=== PATIENT | male | born 1940 | race Caucasian/White ===

== ENCOUNTER 2024-06-28 12:48 | Inpatient (IN) ==
--- NOTE | 2024-06-28 13:03 | Emergency Department Note ---
Impression & Plan AMS (altered mental status), Generalized weakness, UTI (urinary tract infection) ED Provider Note NAME: Makeda OLMOS AGE: 84 SEX: M : 1940 ARRIVES VIA: Ambulance INFORMANT: Patient ED PROVIDER(S): Jay Vieira DO CHIEF COMPLAINT: AMS and weakness HPI: Patient is an 84-year-old male who presents to the ER for worsening mentation and weakness referred in from home. Additional history was obtained from EMS who notes that the patient the patient does have dementia but is significantly more confused from baseline and is having increasing weakness. Patient denies any headache or chest pain. No shortness of breath or belly pain. No urinary symptoms. No dysuria, urgency, or frequency. No other exacerbating or remitting factors. ADDITIONAL HISTORY OBTAINED: Per HPI Chronic Medical/Social Conditions Affecting Care: Per HPI PAST MEDICAL HISTORY:See Below PAST SURGICAL HISTORY:See Below FAMILY HISTORY:See Below SOCIAL HISTORY:See Below HOME MEDICATIONS:See Below ALLERGIES:See Below VITALS:See Below PHYSICAL EXAMINATION: GENERAL: Sitting up in bed, alert, well appearing, well nourished, no distress, non-toxic EYE EXAM: normal conjunctiva. PERRL and EOM's grossly intact. OROPHARYNX: no exudate, no erythema, lips, buccal mucosa, and tongue normal and mucous membranes are moist NECK: supple, no nuchal rigidity, no adenopathy, non-tender LUNGS: Clear to auscultation. Normal chest wall mechanics HEART: no murmurs, S1 normal and S2 normal ABDOMEN: abdomen soft, non-tender, normo-active bowel sounds, no masses, no rebound or guarding. UPPER EXTREMITIES: upper extremities are grossly normal. LOWER EXTREMITIES: No pitting edema. NEURO EXAM: Oriented to person but not place time or year, cranial nerves II-XII intact, normal speech, no weakness of arms, no weakness of legs. No drift. Finger to nose intact. Gross sensation intact. MEDICAL DECISION MAKING: Patient is an 84-year-old male who presents to the ER for weakness and increased confusion at home. IV was established and blood work was obtained. Labs show mild leukocytosis 11,000. No significant anemia. INR unremarkable. BMP with a glucose of 133. LFTs and bilirubin was unremarkable. Troponin was negative. UA consistent with a UTI. Patient was given IV Rocephin and updated at bedside. Discussed with the who notes that the confusion and weakness has been present for 24 hours. She provided additional history. Discussed the case with the hospitalist for further evaluation management treatment. Consults/Care Managements Discussions: Per MDM Triage Nursing notes reviewed. Limited review of prior medical records performed Vital Signs: reviewed and remarkable for no significant abnormalities Differential diagnosis: Differential diagnoses includes but is not limited to toxic, metabolic, infectious, traumatic, cardiac, neurologic, hematologic, psychiatric and inflammatory etiologies. ER treatment provided: See below Diagnostics interpreted by me include EKG and cardiac monitoring as listed below: -Cardiac Monitoring: An order was placed for continuous cardiac monitoring. The monitor shows a rate of 72 with sinus rhythm. -ECG: Sinus rhythm rate of 70 Normal axis No PVCs QTc 429 -Laboratory studies:Interpreted by me as stated above in MDM and shown below. 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 CKD (chronic kidney disease) stage 3, GFR 30-59 ml/min GERD (gastroesophageal reflux disease) HLD (hyperlipidemia) HTN (hypertension) T2DM (type 2 diabetes mellitus) Surgical History (Updated 06/28/24 @ 15:08 by Sue Ocasio PA-C) Hx of colonoscopy Hx of prostate biopsy History of tonsillectomy and adenoidectomy Family History (Updated 06/28/24 @ 16:22 by Sue Ocasio PA-C) Mother Cancer Sister Parkinson disease Social History Smoking Status: Former smoker Tobacco Type: Cigarettes Hx Alcohol Use: No Hx Substance Use: No Preferred Language: [place] Beliefs That Will Affect Care: None Current Living Situation: Spouse Feels Safe at Home: Yes Safety Concerns: Feels Safe At This Time Assistive Devices: Walker Allergies Allergies Allergy/AdvReac Type Severity Reaction Status Date / Time Penicillins Allergy Intermediate Unknown Unverified 02/21/24 09:49 N Allergy Unknown Unknown Uncoded 02/21/24 09:49 PCN Allergy Unknown Unknown Uncoded 02/21/24 09:49 Home Meds Home Medications Medication Instructions Recorded Confirmed aspirin 81 mg tablet,delayed 81 mg PO DAILY 06/28/24 06/28/24 release empagliflozin 25 mg tablet 25 mg PO DAILY 06/28/24 06/28/24 lisinopril 10 mg tablet 10 mg PO DAILY 06/28/24 06/28/24 memantine 10 mg tablet 10 mg PO BID 06/28/24 06/28/24 pravastatin 40 mg tablet 40 mg PO HS 06/28/24 06/28/24 Results & Data (ED) Vital Signs Vital Signs - 24 hr 06/28/24 12:59 06/28/24 13:12 06/28/24 13:13 Temperature 37.7 C H Temperature Source Oral Pulse Rate 70 71 Pulse Rate [Finger] Pulse Rhythm Regular Pulse Rhythm [Finger] Pulse Strength Normal Pulse Strength [Finger] Respiratory Rate 16 Respiratory Effort / Characteristics Non-Labored Spontaneous Respiratory Depth Normal Respiratory Pattern Regular Blood Pressure 105/58 L Blood Pressure [Right Arm] Blood Pressure Mean 73 Blood Pressure Mean [Right Arm] Blood Pressure Position Sitting Blood Pressure Position [Right Arm] Pulse Oximetry 94 94 Oxygen Delivery Method Room Air Room Air Sepsis Recent Fever Within 48 Hours Yes Sepsis New/Unexplained Change in Mental Status N/A Sepsis Action Taken by Nursing No Action Required 06/28/24 14:00 06/28/24 14:00 Temperature Temperature Source Pulse Rate Pulse Rate [Finger] 69 Pulse Rhythm Pulse Rhythm [Finger] Regular Pulse Strength Pulse Strength [Finger] Normal Respiratory Rate 18 Respiratory Effort / Characteristics Non-Labored Respiratory Depth Normal Respiratory Pattern Regular Blood Pressure Blood Pressure [Right Arm] 104/54 L Blood Pressure Mean Blood Pressure Mean [Right Arm] 70 Blood Pressure Position Blood Pressure Position [Right Arm] Lying Pulse Oximetry 93 93 Oxygen Delivery Method Room Air Room Air Sepsis Recent Fever Within 48 Hours Sepsis New/Unexplained Change in Mental Status Sepsis Action Taken by Nursing Laboratory Data 06/28/24 13:05 06/28/24 13:05 Lab Results 06/28/24 06/28/24 06/28/24 Range/Units 13:05 13:58 14:08 WBC 11.02 H (4.8-10.8) K/ul RBC 4.18 L (4.70-6.10) M/uL Hgb 14.2 (14.0-18.0) g/dl Hct 41.9 L (42.0-52.0) % MCV 100.2 H (80.0-100.0) fL MCH 34.0 (25.0-34.0) pg MCHC 33.9 (32.0-36.0) g/dL RDW Std Deviation 46.9 H (36.4-46.3) fL RDW Coeff of Sarai 12.7 (11.5-14.5) % Plt Count 173 (130-400) K/uL MPV 9.4 (9.4-12.4) fL Immature Gran % (Auto) 0.4 % Neut % (Auto) 87.2 % Lymph % (Auto) 5.2 % Evangeline % (Auto) 7.0 % Eos % (Auto) 0.0 % Baso % (Auto) 0.2 % Neut # (Auto) 9.62 H (1.40-6.50) K/uL Lymph # (Auto) 0.57 L (1.20-3.40) K/uL Evangeline # (Auto) 0.77 H (0.11-0.59) K/uL Eos # (Auto) 0.00 (0.00-0.50) K/uL Baso # (Auto) 0.02 (0.00-0.20) K/uL Immature Gran # (Auto) 0.04 (0.01-0.20) K/uL PT 11.3 (9.0-12.0) Seconds INR 1.0 (0.9-1.1) APTT 26 (21-31) Seconds PTT Ratio 1.0 Sodium 141 (136-145) mmol/L Potassium 4.4 (3.5-5.1) mmol/L Chloride 106 (98-107) mmol/L Carbon Dioxide 27 (21-32) mmol/L Anion Gap 8 (3-11) BUN 21 (6-23) mg/dl Creatinine 1.11 (0.6-1.4) mg/dl Est Cr Clr Drug Dosing Not Reportable eGFR 65.48 BUN/Creatinine Ratio 18.9 (10-20) Glucose 128 H (70-99(Fasting)) mg/dl Lactate 1.3 (0.4-2.0) mmol/L Calcium 9.4 (8.6-10.3) mg/dl Total Bilirubin 1.1 H (0.2-1.0) mg/dl AST 15 (13-39) U/L ALT 8 (7-52) U/L Alkaline Phosphatase 63 (34-104) U/L Troponin I High Sens 12.8 (0-20) pg/ml Total Protein 7.1 (6.0-8.3) gm/dl Albumin 4.3 (3.4-5.0) gm/dl Globulin 2.8 (2.5-4.0) gm/dl Albumin/Globulin Ratio 1.5 (0.9-2) Lipase 14 (11-82) U/L Procalcitonin 0.12 (0-0.5) ng/ml Urine Color Yellow Urine Appearance Clear (Clear) Urine pH 5.5 (4.5-7.5) Ur Specific [place] 1.041 H (1.000-1.030) Urine Protein Trace H (Negative) Urine Glucose (UA) 3+ H (Negative) Urine Ketones 1+ H (Negative) Urine Blood Negative (Negative) Urine Nitrite Positive A (Negative) Urine Bilirubin Negative (Negative) Urine Urobilinogen Negative (Negative) Ur Leukocyte Esterase Negative (Negative) Urine WBC (Auto) 6-10 H (0-5) /hpf Urine RBC (Auto) 0-2 (0-2) /hpf U Hyaline Cast (Auto) 0-2 (0-2) /lpf U Epithel Cells (Auto) 0-2 (0-2) /hpf Urine Bacteria (Auto) 4+ H (None Seen) Urine Opiates Screen Neg (Neg) Ur Methadone, Qual Neg (Neg) Urine Fentanyl Screen Neg (Neg) Urine Barbiturates Neg (Neg) Ur Phencyclidine (PCP) Neg (Neg) U Amphetamin/Meth Scrn Neg (Neg) MDMA (Ecstasy) Screen Neg (Neg) U Benzodiazepines Scrn Neg (Neg) Ur Cocaine Metabolite Neg (Neg) U Marijuana (THC) Screen Neg (Neg) Adenovirus (PCR) Not Detected (NotDetected) B. pertussis DNA (PCR) Not Detected (NotDetected) B.parapertussis DNA PCR Not Detected (NotDetected) C. pneumoniae DNA (PCR) Not Detected (NotDetected) Coronavirus OC43 (PCR) Not Detected (NotDetected) Coronavirus HKU1 (PCR) Not Detected (NotDetected) Coronavirus 229E (PCR) Not Detected (NotDetected) SARS-CoV-2 (PCR) Not Detected (NotDetected) Coronavirus NL63 (PCR) Not Detected (NotDetected) Human Metapneumovir PCR Not Detected (NotDetected) Influenza Type A (PCR) Not Detected (NotDetected) Influenza Type B (PCR) Not Detected (NotDetected) M. pneumoniae (PCR) Not Detected (NotDetected) Parainfluenza 1 (PCR) Not Detected (NotDetected) Parainfluenza 2 (PCR) Not Detected (NotDetected) Parainfluenza 3 (PCR) Not Detected (NotDetected) Parainfluenza 4 (PCR) Not Detected (NotDetected) RSV (PCR) Not Detected (NotDetected) Entero/Rhino (PCR) Not Detected (NotDetected) Administered Medications Discontinued Medications Ceftriaxone Sodium (Rocephin) 2,000 mg in 50 mls @ 100 mls/hr IV NOW STA Stop: 06/28/24 15:06 Last Infusion: 06/28/24 15:56 Dose: Infused Documented By: Admin: 06/28/24 14:53 Dose: 100 mls/hr Documented By: DAVIDA Insulin Aspart (Insulin Aspart Per Unit Charge) 0 units SC ACHS YANY Stop: 07/28/24 17:18 Last Admin: 06/28/24 17:58 Dose: Not Given Documented By: SEBASTIEN Imaging Data Radiologist's Impression: Chest X-Ray 06/28/24 13:01 XR chest 1V portable HISTORY: 84 years-old Male Chest pain, nonspecific COMPARISON: None TECHNIQUE: AP view the chest FINDINGS: Cardiac silhouette is mildly enlarged. Atherosclerosis of the aorta. No pneumothorax, large pleural effusion or overt pulmonary edema. Probable mild subsegmental bibasilar atelectasis with possible trace pleural effusions. Severe right glenohumeral osteoarthritis. IMPRESSION: No acute process. ACT 112: Negative or not required by law. The above report was generated using voice recognition software. It may contain grammatical, syntax or spelling errors. Electronically signed by: Shahid Vicente M.D. 06/28/2024 1:[address] 06/28/24 13:01 CT OF THE HEAD WITHOUT CONTRAST CLINICAL HISTORY: Altered mental status COMPARISON STUDY: No previous studies for comparison. CT DOSE: 625.8 mGy.cm TECHNIQUE: Helical axial images of the head were obtained without IV contrast. Automated exposure control was utilized for the study. A dose lowering technique was utilized adhering to the principles of ALARA. FINDINGS: No acute intracranial hemorrhage, midline shift or mass effect is present. Dilatation of the lateral and third ventricles is due to atrophy. White matter hypodensity suggests small vessel disease. The basal cisterns are patent. No extra-axial collections are present. There are no findings to suggest acute dural sinus thrombosis or acute territorial infarct. No significant calvarial abnormalities are present. Visualized portions of the sinuses and mastoid air cells are clear. IMPRESSION: No acute intracranial findings. ACT 112: Negative or not required by law. Electronically signed by: Nathaniel Grajeda M.D. 06/28/2024 2:01 PM Discharge Plan Visit Data Chief Complaint: Weakness Stated Complaint: AMS, WEAKNESS ED Provider: Jay Vieira Discharge Problem: AMS (altered mental status), Generalized weakness, UTI (urinary tract infection) Patient Disposition: Admitted As Inpatient Discharge Instructions Interventions: ED Discharge Assessment Last Done: 06/28/24 16:43 Discharge Problem: AMS (altered mental status) Qualifiers: Altered mental status type: unspecified Qualified Code(s): R41.82 - Altered mental status, unspecified UTI (urinary tract infection) Qualifiers: Urinary tract infection type: acute cystitis Hematuria presence: without hematuria Qualified Code(s): N30.00 - Acute cystitis without hematuria
--- NOTE | 2024-06-28 13:15 | XRay Report ---
XR chest 1V portable HISTORY: 84 years-old Male Chest pain, nonspecific COMPARISON: None TECHNIQUE: AP view the chest FINDINGS: Cardiac silhouette is mildly enlarged. Atherosclerosis of the aorta. No pneumothorax, large pleural e ffusion or overt pulmonary edema. Probable mild subsegmental bibasilar atelectasis with possible trac e pleural effusions. Severe right glenohumeral osteoarthritis. IMPRESSION: No acute process. ACT 112: Negative or not required by law. The above report was generated using voice recognition software. It may contain grammatical, syntax o r spelling errors. Electronically signed by: Shahid Vicente M.D. 06/28/2024 1:13 PM
[2024-06-28 13:32] LABS: Basophils # (auto) 0.02 K/uL (0.00-0.20); Basophils % (auto) 0.2 %; Hematocrit (blood only) 41.9 % (42.0-52.0); Hemoglobin 14.2 g/dl (14.0-18.0); Immature Granulocytes # (auto) 0.04 K/uL (0.01-0.20); Immature Granulocytes % (auto) 0.4 %; Lymphocytes # (auto) 0.57 K/uL (1.20-3.40); Lymphocytes % (auto) 5.2 %; Mean Corpuscular Hgb Conc 33.9 g/dL (32.0-36.0); Mean Corpuscular Volume 100.2 fL (80.0-100.0); Mean Platelet Volume 9.4 fL (9.4-12.4); Monocytes # (auto) 0.77 K/uL (0.11-0.59); Neutrophils # (auto) 9.62 K/uL (1.40-6.50); Neutrophils % (auto) 87.2 %; Platelet Count 173 K/uL (130-400); RDW Coefficient of Variation 12.7 % (11.5-14.5); RDW Standard Deviation 46.9 fL (36.4-46.3); Red Blood Count 4.18 M/uL (4.70-6.10); White Blood Count 11.02 K/ul (4.8-10.8)
[2024-06-28 13:48] LABS: Alanine Aminotransferase 8 U/L (7-52); Albumin Globulin Ratio 1.5 (0.9-2); Albumin Level 4.3 gm/dl (3.4-5.0); Alkaline Phosphatase 63 U/L (34-104); Anion Gap 8 (3-11); Aspartate Aminotransferase 15 U/L (13-39); BUN Creatinine Ratio 18.9 (10-20); Bilirubin,Total 1.1 mg/dl (0.2-1.0); Blood Urea Nitrogen 21 mg/dl (6-23); Calcium 9.4 mg/dl (8.6-10.3); Carbon Dioxide 27 mmol/L (21-32); Chloride 106 mmol/L (98-107); Globulin 2.8 gm/dl (2.5-4.0); Glucose 128 mg/dl (70-99(Fasting)); Lipase 14 U/L (11-82); Potassium 4.4 mmol/L (3.5-5.1); Sodium 141 mmol/L (136-145); Total Protein 7.1 gm/dl (6.0-8.3)
[2024-06-28 13:54] LABS: Partial Thromboplastin Time 26 Seconds (21-31); Prothrombin Time 11.3 Seconds (9.0-12.0)
[2024-06-28 13:55] LABS: Troponin I High Sensitivity 12.8 pg/ml (0-20)
--- NOTE | 2024-06-28 14:03 | CT Scan Report ---
CT OF THE HEAD WITHOUT CONTRAST CLINICAL HISTORY: Altered mental status COMPARISON STUDY: No previous studies for comparison. CT DOSE: 625.8 mGy.cm TECHNIQUE: Helical axial images of the head were obtained without IV contrast. Automated exposure con trol was utilized for the study. A dose lowering technique was utilized adhering to the principles o f ALARA. FINDINGS: No acute intracranial hemorrhage, midline shift or mass effect is present. Dilatation of th e lateral and third ventricles is due to atrophy. White matter hypodensity suggests small vessel dise ase. The basal cisterns are patent. No extra-axial collections are present. There are no findings to suggest acute dural sinus thrombosis or acute territorial infarct. No significant calvarial abnormali ties are present. Visualized portions of the sinuses and mastoid air cells are clear. IMPRESSION: No acute intracranial findings. ACT 112: Negative or not required by law. Electronically signed by: Nathaniel Grajeda M.D. 06/28/2024 2:01 PM
[2024-06-28 14:15] LABS: Appearance Urine Clear (Clear); Bacteria Urine Automated 4+ (None Seen); Bilirubin Urine Negative (Negative); Blood Urine Negative (Negative); Cast Urine Automated 0-2 /lpf (0-2); Color Urine Yellow; Epithelial Cell Urine Auto 0-2 /hpf (0-2); Glucose Urine UA 3+ (Negative); Ketones Urine 1+ (Negative); Leukocyte Esterase Urine Negative (Negative); Nitrite Urine Positive (Negative); Protein Urine Trace (Negative); RBC Urine Automated 0-2 /hpf (0-2); Specific Gravity Urine 1.041 (1.000-1.030); Urobilinogen Urine Negative (Negative); pH Urine 5.5 (4.5-7.5)
[2024-06-28 14:53] LABS: Amphetamines+Metham, Urine Neg (Neg); Barbiturates, Urine Neg (Neg); Benzodiazepine, Urine Neg (Neg); Cocaine, Urine Neg (Neg); Fentanyl, Urine Neg (Neg); MDMA (Ecstacy), Urine Neg (Neg); Marijuana, Urine Neg (Neg); Methadone, Urine Neg (Neg); Opiate, Urine Neg (Neg); Phencyclidine, Urine Neg (Neg)
[2024-06-28] MEDS: cefTRIAXone SODIUM 2,000 MG/50 ML BAG IV STA (14:53)
[2024-06-28 14:58] LABS: Adenovirus PCR Not Detected (NotDetected); Bordetella parapertussis PCR Not Detected (NotDetected); Bordetella pertussis PCR Not Detected (NotDetected); Chlamydia pneumoniae PCR Not Detected (NotDetected); Coronavirus 229E PCR Not Detected (NotDetected); Coronavirus CoV-2 (COVID19)PCR Not Detected (NotDetected); Coronavirus HKU1 PCR Not Detected (NotDetected); Coronavirus NL63 PCR Not Detected (NotDetected); Coronavirus OC43PCR Not Detected (NotDetected); Human Metapneumovirus PCR Not Detected (NotDetected); Influenza A PCR Not Detected (NotDetected); Influenza B PCR Not Detected (NotDetected); Mycoplasma pneumoniae PCR Not Detected (NotDetected); Parainfluenza Virus 1 PCR Not Detected (NotDetected); Parainfluenza Virus 2 PCR Not Detected (NotDetected); Parainfluenza Virus 3 PCR Not Detected (NotDetected); Parainfluenza Virus 4 PCR Not Detected (NotDetected); Respiratory Syncytial VirusPCR Not Detected (NotDetected); Rhinovirus/Enterovirus PCR Not Detected (NotDetected)
--- NOTE | 2024-06-28 15:09 | History & Physical Report ---
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 feels cognition is at baseline and therefore no encephalopathy component to his UTI continue namenda T2DM: hold jardiance, last a1c was 6.2 in november, A1C in a.m., accuchecks AC/HS, if BSG consistently elevated add sliding scale HTN: chronic, stable, bp on lower side, hold lisinopril for now, resume when appropriate HLD: chronic, stable continue statin CKD-3 - baseline cr 1.1, avoid nephrotoxic agents, appears on dry side, give 1 L of gentle IVF DVT ppx: SQ heparin DNR/DNI PCP: Susanne Dispo: admit to med tele, PT/OT consulted, possible to need rehab vs d/c to home with home health Pt was seen and examined in collaboration with Dr. Caldwell, please see addendum I spent a total of 76minutes reviewing notes, outpatient records, labs, medication, coordinating, documenting and providing care for this patient excluding time spent in the performance of separately billed services. History of Present Illness Chief Complaint: Increasing generalized weakness Primary Care Provider: Michael Skinner, This is an 84-year-old male who has significant past medical history of HTN, HLD, T2DM, CKD stage III, GERD, BPH, late onset Alzheimer dementia without behavior disturbance who presents to ED secondary to worsening confusion. History obtained from ED provider and outpatient chart review given patient's underlying cognitive status. Patient's is at bedside who also helps elicit history. Her live at home. He does not require assist device for ambulation but she states he typically takes very slow and short steps. She is his main caregiver. He does have underlying dementia. At baseline he tends to be confused and sometimes is unaware of who she is. She does not feel his confusion is any worse than his baseline. She feels he has been getting increasingly weak over the past few days. Typically he is able to get in bed himself but today he had had difficulty doing so. She denies any known fever, chest pain, shortness of breath, vomiting or diarrhea. She states he had been constipated and was previously seen in ED a few weeks prior because of this. He is mostly incontinent of urine and wears depends. In ED patient remained hemodynamically stable. He did have a mild elevated temp at 37.7. He did not meet sepsis criteria. A CBC and CMP was generally unremarkable, but he did have a urinalysis that was consistent with infection. He did receive empiric IV Rocephin in the ED. Allergies Allergy/AdvReac Type Severity Reaction Status Date / Time Penicillins Allergy Intermediate Unknown Unverified 02/21/24 09:49 N Allergy Unknown Unknown Uncoded 02/21/24 09:49 PCN Allergy Unknown Unknown Uncoded 02/21/24 09:49 Home Medications Medication Instructions Recorded Confirmed Type aspirin 81 mg tablet,delayed 81 mg PO DAILY 06/28/24 06/28/24 History release empagliflozin 25 mg tablet 25 mg PO DAILY 06/28/24 06/28/24 History lisinopril 10 mg tablet 10 mg PO DAILY 06/28/24 06/28/24 History memantine 10 mg tablet 10 mg PO BID 06/28/24 06/28/24 History pravastatin 40 mg tablet 40 mg PO HS 06/28/24 06/28/24 History Past Med/Surg History Problem List (Updated 06/28/24 @ 16:24 by Sue Ocasio PA-C) UTI (urinary tract infection) Generalized weakness Medical History (Updated 06/28/24 @ 16:24 by Sue Ocasio PA-C) BPH (benign prostatic hyperplasia) 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 CKD (chronic kidney disease) stage 3, GFR 30-59 ml/min GERD (gastroesophageal reflux disease) HLD (hyperlipidemia) HTN (hypertension) T2DM (type 2 diabetes mellitus) Surgical History (Updated 06/28/24 @ 15:08 by LENCHO SchaefferC) Hx of colonoscopy Hx of prostate biopsy History of tonsillectomy and adenoidectomy Family History (Updated 06/28/24 @ 16:22 by Sue Ocasio PA-C) Mother Cancer Sister Parkinson disease Social History Smoking Status: Former smoker Hx Alcohol Use: Yes Hx Substance Use: No Preferred Language: Greenlandic Feels Safe at Home: Yes Review of Systems Review of Systems: All systems reviewed & are unremarkable except as noted in HPI & below Physical Exam Physical Exam: Gen: Thin, elderly, M, NAD, A&O to self HEENT: Normocephalic, atraumatic, conjunctivae moist, sclerae anicteric, mucous membranes moist dry with poor dentition Lung: Clear to Auscultation bilaterally, diminished at bases due to poor insp effort, no wheezes/rales/rhonchi Heart: Regular rate, regular rhythm,2/6 EMILIANO LUSB, no rubs, or gallops Abdomen: Soft, NT, ND +BS x 4 Extremities: No edema Skin: Warm, no rash, negative turgor. Results & Data Results & Data Vital Signs (Past 12 Hours) Vital Signs Temp Pulse Pulse Resp BP BP Pulse Ox 06/28/24 14:00 69 18 104/54 L 93 06/28/24 14:00 93 06/28/24 13:13 71 06/28/24 13:12 94 06/28/24 12:59 37.7 C H 70 16 105/58 L 94 O2 Del Method 06/28/24 14:00 Room Air 06/28/24 14:00 Room Air, Nasal Cannula, Oxymask, Aerosol Mask, Ambu-Bag, BiPAP, CPAP, Free Flow/Blow-by, High Flow Nasal Cannula, Oxyhood, Mechanical Vent, Nasal CPAP, Nebulizer, Non-rebreather, T-Piece, Trach Collar, Face Tent, Other 06/28/24 13:13 06/28/24 13:12 Room Air 06/28/24 12:59 Room Air Laboratory Results I have independently reviewed and interpreted patient's admitting labs including CBC, CMP, lipase, procal, UA, lactic acid Diagnostic Findings Chest X-Ray 06/28/24 13:01 XR chest 1V portable HISTORY: 84 years-old Male Chest pain, nonspecific COMPARISON: None TECHNIQUE: AP view the chest FINDINGS: Cardiac silhouette is mildly enlarged. Atherosclerosis of the aorta. No pneumothorax, large pleural effusion or overt pulmonary edema. Probable mild subsegmental bibasilar atelectasis with possible trace pleural effusions. Severe right glenohumeral osteoarthritis. IMPRESSION: No acute process. ACT 112: Negative or not required by law. The above report was generated using voice recognition software. It may contain grammatical, syntax or spelling errors. Electronically signed by: Shahid Vicente M.D. 06/28/2024 1:[address] 06/28/24 13:01 CT OF THE HEAD WITHOUT CONTRAST CLINICAL HISTORY: Altered mental status COMPARISON STUDY: No previous studies for comparison. CT DOSE: 625.8 mGy.cm TECHNIQUE: Helical axial images of the head were obtained without IV contrast. Automated exposure control was utilized for the study. A dose lowering technique was utilized adhering to the principles of ALARA. FINDINGS: No acute intracranial hemorrhage, midline shift or mass effect is present. Dilatation of the lateral and third ventricles is due to atrophy. White matter hypodensity suggests small vessel disease. The basal cisterns are patent. No extra-axial collections are present. There are no findings to suggest acute dural sinus thrombosis or acute territorial infarct. No significant calvarial abnormalities are present. Visualized portions of the sinuses and mastoid air cells are clear. IMPRESSION: No acute intracranial findings. ACT 112: Negative or not required by law. Electronically signed by: Nathaniel Grajeda M.D. 06/28/2024 2:01 PM Medications Administered Medication List Discontinued Medications Ceftriaxone Sodium (Rocephin) 2,000 mg in 50 mls @ 100 mls/hr IV NOW STA Stop: 06/28/24 15:06 Last Infusion: 06/28/24 15:56 Dose: Infused Documented By: Admin: 06/28/24 14:53 Dose: 100 mls/hr Documented By: DAVIDA ECG Additional Comments: I have independently reviewed and interpreted patient's admitting EKG which revealed: NSR, no st or t wave change, 70 bpm, qtc 429ms COVID-19 Results Results COVID-19 Adm Lab Results: RBC 4.18 M/uL (4.70-6.10) L 06/28/24 WBC 11.02 K/ul (4.8-10.8) H 06/28/24 Hgb 14.2 g/dl (14.0-18.0) 06/28/24 Hct 41.9 % (42.0-52.0) L 06/28/24 Plt Count 173 K/uL (130-400) 06/28/24 Neutrophils (%) (Auto) 87.2 % 06/28/24 Lymphocytes (%) (Auto) 5.2 % 06/28/24 Eosinophils # (Auto) 0.00 K/uL (0.00-0.50) 06/28/24 Immature Granulocyte % (Auto) 0.4 % 06/28/24 Neutrophils # (Auto) 9.62 K/uL (1.40-6.50) H 06/28/24 Lymphocytes # (Auto) 0.57 K/uL (1.20-3.40) L 06/28/24 Eosinophils # (Auto) 0.00 K/uL (0.00-0.50) 06/28/24 Basophils # (Auto) 0.02 K/uL (0.00-0.20) 06/28/24 Immature Granulocyte # (Auto) 0.04 K/uL (0.01-0.20) 4 Na 141 mmol/L (136-145) 06/28/24 K 4.4 mmol/L (3.5-5.1) 06/28/24 Cl 106 mmol/L (98-107) 06/28/24 CO2 27 mmol/L (21-32) 06/28/24 Anion Gap 8 (3-11) 06/28/24 BUN 21 mg/dl (6-23) 06/28/24 Creatinine 1.11 mg/dl (0.6-1.4) 06/28/24 BUN/Creatinine Ratio 18.9 (10-20) 06/28/24 Glucose Level 128 mg/dl (70-99(Fasting)) H 06/28/24 Ca 9.4 mg/dl (8.6-10.3) 06/28/24 Total Bilirubin 1.1 mg/dl (0.2-1.0) H 06/28/24 AST/SGOT 15 U/L (13-39) 06/28/24 ALT/SGPT 8 U/L (7-52) 06/28/24 Alkaline Phosphatase 63 U/L (34-104) 06/28/24 Total Protein 7.1 gm/dl (6.0-8.3) 06/28/24 Albumin 4.3 gm/dl (3.4-5.0) 06/28/24 Globulin 2.8 gm/dl (2.5-4.0) 06/28/24 Albumin/Globulin Ratio 1.5 (0.9-2) 06/28/24 Procalcitonin 0.12 ng/ml (0-0.5) 06/28/24 PTT 26 Seconds (21-31) 06/28/24 INR 1.0 (0.9-1.1) 06/28/24 Adenovirus (PCR) Not Detected (NotDetected) 06/28/24 B. parapertussis DNA (PCR) Not Detected (NotDetected) 06/11 04/03 B. pertussis DNA (PCR) Not Detected (NotDetected) 06/28/24 C. pneumoniae DNA (PCR) Not Detected (NotDetected) 4 Coronavirus Type OC43 (PCR) Not Detected (NotDetected) Coronavirus Type HKU1 (PCR) Not Detected (NotDetected) Coronavirus Type 229E (PCR) Not Detected (NotDetected) COVID-19 PCR Not Detected (NotDetected) 06/28/24 Coronavirus Type NL63 (PCR) Not Detected (NotDetected) Human Metapneumovirus (PCR) Not Detected (NotDetected) Influenza Virus Type A (PCR) Not Detected (NotDetected) Influenza Virus Type B (PCR) Not Detected (NotDetected) M. pneumoniae (PCR) Not Detected (NotDetected) 06/28/24 Parainfluenza Type 1 (PCR) Not Detected (NotDetected) 06/11 04/03 Parainfluenza Type 2 (PCR) Not Detected (NotDetected) 06/11 04/03 Parainfluenza Type 3 (PCR) Not Detected (NotDetected) 06/11 04/03 Parainfluenza Type 4 (PCR) Not Detected (NotDetected) 06/11 04/03 RSV (PCR) Not Detected (NotDetected) 06/28/24 Enterovirus/Rhinovirus (PCR) Not Detected (NotDetected) Chest X-Ray 06/28/24 Code Status & VTE Plan Code Status DNR/DNI Supervising Physician Co-Signing Physician Notes Pt seen and examined in the ED. His is present. Chart and data was reviewed. Spouse said his dementia is worsening. She states he is becoming more verbally abusive. Will consult CM. I agree with the PHILLIP plan of care as directed. Total time spent in care was 15 minutes.
[2024-06-28] MEDS ORDERED: DEXTROSE 50% 50 ML SYRINGE IV PRN (17:19)
[2024-06-28] MEDS ORDERED: CARBOHYDRATES FOR HYPOGLYCEMIA PO PRN (17:19)
[2024-06-28] MEDS ORDERED: GLUCAGON FOR INJ 1 MG VIAL SQ PRN (17:19)
[2024-06-28] MEDS ORDERED: GLUCOSE 40% GEL 15 GM TUBE PO PRN (17:19)
[2024-06-28] MEDS ORDERED: ONDANSETRON INJ 2 MG/ML 2 ML VIAL IV PRN (17:19)
[2024-06-28] MEDS ORDERED: GLUCOSE 10 TAB/TUBE PO PRN (17:19)
[2024-06-28] MEDS: INSULIN ASPART PER UNIT CHARGE SC SCH (17:58)
[2024-06-28] MEDS: SODIUM CHLORIDE 0.9% 1,000 ML IV SCH (18:22)
[2024-06-28] MEDS: ACETAMINOPHEN 325 MG TAB PO PRN (18:32)
[2024-06-28] MEDS: PRAVASTATIN SOD 40 MG TAB PO SCH (19:58)
[2024-06-28] MEDS: MEMANTINE HCL 10 MG TAB PO SCH (19:59)
[2024-06-28] MEDS: HEPARIN SOD 5,000 UNIT/0.5 ML VIAL SQ SCH (20:11)
[2024-06-28] MEDS: MELATONIN 3 MG TAB PO PRN (20:11)
--- OUTSIDE RECORDS SUMMARY | 2024-06-28 23:07 | External Medical Summary | Summary of Care ---
Author Name Unknown Organization [facility] Address [address] [place] [address] Phone [phone] Care Team Providers Care Technician Support Engineer Name Role Phone Lila Coughlin DO Primary Care Provider [phone] Reason for Visit * Reason Comments Medication Refill Encounter Details Date Type Department Care Team (Late st Contact Info) Description 05/25/2024 Refill Family Practice [facility] [place] [address] [facility] [place] [address] Lila Coughlin DO [address] [facility] [place] [address] Elbow tendonitis Allergies Active Allergy Reactions Criticality Noted Date Comments Penicillins Rash Low 08/11/1958 Rash, at injection site, no other rash documented as of this encounter (statuses as of 05/28/2024) Medications Medication Sig Dispensed Refills Start Date End Date Status ASPIRIN 81 MG OR TABSIndications:Dy slipidemia, goal LDL below 160 one tab by mouth daily 100 5 04/25/2004 Active Docusate Sodium 100 MG Oral CapsuleIndications :Slow transit constipation 2 Caps twice daily 10 Cap 05/06/2016 Active Empagliflozin 25 MG Oral Tablet (Jardiance) TAKE ONE TABLET BY MOUTH EVERY DAY 90 Tablet 3 09/23/2023 Active Lisinopril 10 MG Oral Tablet (Prinivil)Indicati ons:HTN, goal below 140/90,Type 2 diabetes mellitus with hemoglobin A1c goal of less than 7.0% (HCC) TAKE ONE TABLET BY MOUTH EVERY DAY IN THE MORNING 90 Tablet 3 12/03/2023 5 Active Tamsulosin HCl 0.4 MG Oral Capsule (Flomax) Take 1 Capsule by mouth in the morning. 30 Capsule 3 01/06/2024 Active Stool Softener 50 MG/5ML Oral Liquid (Docusate Sodium) Take 10 mL by mouth in the morning. Active Pravastatin Sodium 40 MG Oral Tablet (Pravachol)Indicat ions:Type 2 diabetes mellitus with hemoglobin A1c goal of less than 7.0% (HCC),Dyslipidemia , goal LDL below 100 TAKE ONE TABLET BY MOUTH IN THE EVENING 90 Tablet 1 02/26/2024 Active Diclofenac Sodium 1 % External Gel (Voltaren)Indicati ons:Elbow tendonitis Apply topically to affected area 2 times a day. Apply to left elbow 200 g 5 05/28/2024 Active Diclofenac Sodium 1 % External Gel (Voltaren)Indicati ons:Elbow tendonitis Apply topically to affected area 2 times a day. Apply to left elbow 100 g 5 04/18/2023 4 Discontinue d(Refill) Memantine HCl 10 MG Oral Tablet (Namenda)Indicatio ns:Late onset Alzheimer's dementia without behavioral disturbance (HCC) TAKE ONE TABLET BY MOUTH TWICE A DAY 180 Tablet 3 06/05/2023 4 Discontinue d(Refill) documented as of this encounter (statuses as of 05/28/2024) Active Problems Problem Noted Date Diagnosed Date Late onset Alzheimer's demen tia without behavioral disturbance 09/10/2022 Chronic kidney disease, stage 3a 01/23/2021 Overview: Per CKD protocol Type 2 diabetes mellitus wit h stage 3a chronic kidney disease and hypertension 12/19/2020 Overview: Per CKD protocol HTN, goal below 150/90 04/29/2017 History of nonmelanoma skin cancer 04/22/2017 Overview: BCC right nasolabial fold 10/16 Obesity, Class I, 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 (see actual BMI) 11/05/2016 Dyslipidemia, goal LDL below 100 03/17/2013 GERD (gastroesophageal reflux disease) 08/07/201 3 Diverticulosis 10/20/2012 Overview: colon diverticulosis, repeat colonoscopy 10 years No advance directive on file 02/02/2008 Overview: Yes, Patient instructed to provide copy of advance directive for provider to review and to be scanned into Electronic Medical Record BPH without obstruction/lower urinary tract symp toms 12/28/2002 documented as of this encounter (statuses as of 05/28/2024) Resolved Problems Problem Noted Date Diagnosed Date Resolved Date Diabetes mellitus with stage 3 chronic kidney disease 10/16/2020 12/21/2020 Overview: Per CKD protocol Type 2 diabetes mellitus wit hout complications 10/04/2020 10/09/2022 Dementia without behavioral disturbance 03/31/2020 10/09/2022 Overview: ICD-10 update of inactive term Prediabetes 05/18/2018 10/19/2020 Overview: Per Prediabetes protocol #1 Essential hypertension with goal blood pressure less than 140/90 05/06/2016 04/29/2017 History of basal cell carcinoma 04/24/2012 04/22/2017 Overview: right nasolabial fold Dyslipidemia, goal LDL below 130 11/07/2010 03/17/2013 BMI 35-39 ISOLATED (SEE ACTUAL BMI) 01/22/2010 11/05/2016 Overview: Per Obesity Protocol, #19 HTN, goal below 140/90 06/16/200905/06 Overview: Modified per HTN Taxonomy. BENIGN HYPERTENSION 01/03/1998 06/16/20 Overview: Modified per HTN Taxonomy. PURE HYPERCHOLESTEROLEM 01/03/199803/2009 Overview: Per Lipid Taxonomy. Type 2 diabetes mellitus wit h hemoglobin A1c goal of less than 7.0% 12/05/2017 Overview: Diabetes Type II, Controlled ICD-10 update of inactive term documented as of this encounter (statuses as of 05/28/2024) Immunizations Name Administration Dates Next Due COVID-19 mRNA, LNP-s, No Pre serve, 2-Dose Series (OzVision) 08/07/2021,11/29/2020,11/08/2020 COVID-19, LNP-s, No Preserve , Evin-sucrose, Ages 12+ (Pfizer) 11/22/2021 Covid-19, Mrna, Lnp-s, Pf, B ivalent, 30 Mcg, IM, 12 yrs and above (Pfizer) 07/11/2022 Hepatitis B, 20+ yrs 05/08/2018,06/16/2017,04/29 Pneumococcal Conjugate Vacc, 13 Valent (Prevnar) 09/21/2014 Pneumococcal Polysaccharide PPV23 (Pneumovax) 05/20/2012 Seasonal Influenza Vac., MDV , IM, 0.5 mL (Fluzone) 07/20/2014,04/28/2013,05/20/2012,05/12,05/09/2010,06/17/2008,06/08/20 07,06/03/2006,06/04/2005 06/06/2012 Seasonal Influenza, PF, 6 M & above, IM , (FluLaval or Fluzone) 05/15/2020,05/08/2018 Seasonal Influenza, Quadriva lent Hd (Fluzone Hd) 04/18/2023,05/03/2022,07/02/2021 Seasonal Influenza, Quadriva lent, No Preserve, IM 04/29/2017,07/01/2016,06/30/2015 07/01/2017 Seasonal Influenza, Trivalen t, Adjuvanted, 65+ YRS, PF, (Fluad) 05/19/2019 TD, Preservative Free 10/20/2008 TDAP (age 10 and older)(Boostrix) 05/03/2022,01/2012 Varicella Zoster Vaccine (Adult) 08/24/2008 Zoster Vaccine Recombinant (Shingrix) 10/09/2022 ,05/03/2022 documented as of this encounter Social History Tobacco Use Types Packs/Day Years Used Date Smoking Tobacco: Former Cigarettes 1 30 0 11/09/1961 - 11/10/1991 Smokeless Tobacco: Never Alcohol Use Standard Drinks/Week Comments Yes 0 (1 standard drink = 0.6 oz pur e alcohol) rare PHQ-2 Answer Date Recorded PHQ Adult Total Score 0 05/03/2022 Sex and Gender Information Value Date Recorded Sex Assigned at Not on file Gender Identity Not on file Sexual Orientation Not on file Job Start Date Occupation Industry Not on file Not on file Not on file documented as of this encounter Miscellaneous Notes * Telephone Encounter - Lila Coughlin DO - 05/28/2024 12:48 PM EDTSigned Prescriptions: Disp Refills Diclofenac Sodium 1 % External Gel (Voltar*200 g 5 Sig: Apply topically to affected area 2 times a day. Apply to left elbow Authorizing Provider: LILA COUGHLIN * Telephone Encounter - Lila Coughlin DO - 05/28/2024 12:48 PM EDTSigned Prescriptions: Disp Refills Diclofenac Sodium 1 % External Gel (Voltar*200 g 5 Sig: Apply topically to affected area 2 times a day. Apply to left elbow Authorizing Provider: LILA COUGHLIN * Telephone Encounter - Marianne Chavez, human geography faculty member - 05/28/2024 8:57 AM EDT Pharmacy checking status, please advise. Marianne Hart Inventory Specialist Manager III [facility] 05/28/2024,8:57 AM * Telephone Encounter - Isabel Morataya CPhT - 05/26/2024 10:08 AM EDT Pharmacy is requesting a 90-day supply, pre-edited RXs as such. Please review and approve if appropriate. Pending Prescriptions: Disp Refills Diclofenac Sodium 1 % External Gel ([place]*200 g 5 Sig: Apply topically to affected area 2 times a day. Apply to left elbow Last Visit: 02/18/2024 (in office), 11/29/2019 (telemedicine) Visit date not found If no future appointments scheduled, and last appointment is greater than a year ago, please schedule patient for an appointment Last date the medication was ordered: 04/18/23 Patient Phone Numbers Labs: Lab Results Component Value Date/Time CREAT 1.1 12/05/2023 11:34 AM CREAT 1.2 10/08/2019 08:27 AM POTASSIUM 4.7 12/05/2023 11:34 AM POTASSIUM 4.8 10/08/2019 08:27 AM TSH 1.95 09/05/2021 01:52 PM TSH 3.35 10/17/2015 07:39 AM LDL 55 12/05/2023 11:34 AM LDL 78 10/08/2019 08:27 AM LDL NOT APPLICABLE 10/08/2019 08:27 AM ALT 10 04/18/2023 11:48 AM ALT 11 10/08/2019 08:27 AM HGBA1C 6.2 (H) 12/05/2023 11:34 AM HGBA1C 6.6 (H) 10/08/2019 08:27 AM * Telephone Encounter - Neisha Santa - 05/25/2024 6:18 AM EDTPending Prescriptions: Disp Refills Diclofenac Sodium 1 % External Gel (Voltar*100 g 5 Sig: Apply topically to affected area 2 times a day. Apply to left elbow documented in this encounter Plan of Treatment Health Maintenance Due Date Last Done Comments Adult Wellness Visit 03/04/2015 03/04/2014 Diabetic Eye Exam 03/08/2023 03/08/2022, , 07/04/2021, Additional history exists Depression Screening 05/03/2023 05/03/2022 Albumin/Creatinine Ratio 10/10/2023 023, 10/16/2021, 10/04/2020, Additional history exists COVID-19 Vaccine ( season) 2024 07/11/2022, 11/22/2021, 08/07/2021, Additional history exists Influenza Vaccine (FLU shot) (#1) 2024 04/18/2023, 05/03/2022, 07/02/2021, Additional history exists GFR 06/05/2024 12/05/2023, 09/0 03/2023, 10/09/2022, Additional history exists HbA1c 06/05/2024 12/05/2023, 09/0 03/2023, 10/09/2022, Additional history exists CKD HGB USE SMARTSET 55442 12/04/202412/04, 12/05/2023, 04/18/2023, Additional history exists CKD PHOS USE SMARTSET 27545 12/04/2024 04/2 01/2024, 10/09/2022, 04/02/2021 Diabetic Foot Exam 02/17/2025 02/18/2024, 0 04/09/2021, 10/28/2017, Additional history exists DTap/Tdap Vaccines (3 - Td or Tdap) 05/03/2032 05/03/2022, 03/16/2012, 10/20/2008, Additional history exists Pneumococcal Vaccine: 65+ Years Completed 09/21/2014, 05/20/2012, 05/13/2003 Hepatitis B Vaccine Completed 05/08/2018, 06/16/2017, 04/29/2017 Zoster Vaccines Completed 10/09/2022, 04/12, 08/24/2008 HPV (Gardasil) Vaccine Aged Out No lo nger eligible based on patient's age to complete this topic MENINGOCOCCAL (MENACTRA/MENVEO) Aged Out No longer eligible based on patient's age to complete this topic documented as of this encounter Medical Devices Not on filedocumented as of this encounter Visit Diagnoses Diagnosis Elbow tendonitis Other synovitis and tenosynovitis documented in this encounter Advance Directives Documents on File Type Date Recorded Patient Iron Cutter Expl anation Advance Directives and Living Will 12/15/2018 LIVING WILL Power of Train Brake Operator 12/15/2018 [facility] Teams Technician Support Engineer Relationship Specialty Start Date End Date Lila Coughlin DO [address] [place] [address] PCP - General Family Medicine 04/22/17 documented as of this encounter
--- OUTSIDE RECORDS SUMMARY | 2024-06-28 23:07 | External Medical Summary | Summary of Care ---
Author Name Unknown Organization [facility] Address [address] [place] [address] Phone [phone] Care Team Providers Care Microfabrication Engineer Manager Name Role Phone Lila Coughlin DO Primary Care Provider [phone] Reason for Visit * Reason Comments Medication Refill Encounter Details Date Type Department Care Team (Late st Contact Info) Description 05/25/2024 Refill Family Practice [facility] [place] [address] [facility] [place] [address] Shama Meier MD [address] [place] [address] Late onset Alzheimer's dementia without behavioral disturbance (HCC) Allergies Active Allergy Reactions Criticality Noted Date [...] THE EVENING 90 Tablet 1 02/26/2024 Active Memantine HCl 10 MG Oral Tablet (Namenda)Indicatio ns:Late onset Alzheimer's dementia without behavioral disturbance (HCC) TAKE ONE TABLET BY MOUTH TWICE A DAY 180 Tablet 3 05/28/2024 Active Diclofenac Sodium 1 % External [...] below 100 03/17/2013 GERD (gastroesophageal reflux disease) 3 Diverticulosis 10/20/2012 Overview: colon diverticulosis, repeat [...] mRNA, LNP-s, No Pre serve, 2-Dose Series (Workface) 08/07/2021,11/29/2020,11/08/2020 COVID-19, LNP-s, No Preserve , Evin-sucrose, [...] 05/28/2024 12:48 PM EDTSigned Prescriptions: Disp Refills Memantine HCl 10 MG Oral Tablet (Namenda) 180 Ta*3 Sig: TAKE ONE TABLET BY MOUTH TWICE A DAY Authorizing Provider: LILA COUGHLIN * Telephone Encounter - Lila Coughlin DO - 05/28/2024 12:48 PM EDTSigned Prescriptions: Disp Refills Memantine HCl 10 MG Oral Tablet (Namenda) 180 Ta*3 Sig: TAKE ONE TABLET BY MOUTH TWICE A DAY Authorizing Provider: LILA COUGHLIN * Telephone Encounter - Elaine Hodgson CMA - 05/28/2024 11:05 AM EDTPending Prescriptions: Disp Refills Memantine HCl 10 MG Oral Tablet (Namenda) 180 Ta*3 Sig: TAKE ONE TABLET BY MOUTH TWICE A DAY * Telephone Encounter - Elaine Hodgson CMA - 05/28/2024 11:05 AM EDT Did you pend patient's preferred pharmacy and medication before forwarding?yes Pharmacy: [facility] Pending Prescriptions: Disp Refills Memantine HCl 10 MG Oral Tablet (Namenda) 180 Ta*3 Sig: TAKE ONE TABLET BY MOUTH TWICE A DAY Last Visit: 02/18/2024 (in office), 11/29/2019 (telemedicine) Next Visit: Visit date not found If no future appointments scheduled, and last appointment is greater than a year ago, please schedule patient for a follow-up appointment Last date the medication was ordered: 06/05/23 Is this request for a controlled substance?No Urine Drug Screen:No results found for this or any previous visit. Patient Phone Numbers Labs: Lab Results Component [...] 10/08/2019 08:27 AM * Telephone Encounter - Marianne Chavez, cavity pump operator - 05/28/2024 8:58 AM EDT Pharmacy checking status, please advise. Marianne Hart Electric Screw Driver Operator III [facility] 05/28/2024,8:58 AM * Telephone Encounter - Isabel Morataya CPhT - 05/26/2024 10:07 AM EDT Did you pend patient's preferred pharmacy and medication before forwarding?yes Pharmacy: [facility] Pending Prescriptions: Disp Refills Memantine HCl 10 MG Oral Tablet (Namenda) 180 Ta*3 Sig: TAKE ONE TABLET BY MOUTH TWICE A DAY Last Visit: 02/18/2024 (in office), 11/29/2019 (telemedicine) Next Visit: Visit date not found If no future appointments scheduled, and last appointment is greater than a year ago, please schedule patient for a follow-up appointment Last date the medication was ordered: 06/05/23 Is this request for a controlled substance?No Urine Drug Screen:No results found for this or any previous visit. 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
--- OUTSIDE RECORDS SUMMARY | 2024-06-28 23:07 | External Medical Summary | Summary of Care ---
Author Name Unknown Organization [facility] Address [address] [place] [address] Phone [phone] Care Team Providers Care Military Analyst Name Role Phone Lila Coughlin DO Primary Care Provider [phone] Reason for Visit * Reason Comments Medication Refill Encounter Details Date Type Department Care Team (Late st Contact Info) Description 02/26/2024 Refill Family Practice [facility] [place] [address] [facility] [place] [address] Lila Coughlin DO [address] [facility] [place] [address] Type 2 diabetes mellitus with hemoglobin A1c goal of less than 7.0% ([facility]); Dyslipidemia, goal LDL below 100 Allergies Active Allergy Reactions Criticality Noted Date Comments Penicillins Rash Low 08/11/1958 Rash, at injection site, no other rash documented as of this encounter (statuses as of 02/26/2024) Medications Medication Sig Dispensed Refills Start Date End Date Status ASPIRIN 81 MG OR TABSIndications:Dy slipidemia, goal LDL below 160 one tab by mouth daily 100 5 04/25/2004 Active Docusate Sodium 100 MG Oral CapsuleIndications :Slow transit constipation 2 Caps twice daily 10 Cap 05/06/2016 Active Diclofenac Sodium 1 % External Gel (Voltaren)Indicati ons:Elbow tendonitis Apply topically to affected area 2 times a day. Apply to left elbow 100 g 5 04/18/2023 Active Memantine HCl 10 MG Oral Tablet (Namenda)Indicatio ns:Late onset Alzheimer's dementia without behavioral disturbance (HCC) TAKE ONE TABLET BY MOUTH TWICE A DAY 180 Tablet 3 06/05/2023 Active Empagliflozin 25 MG Oral Tablet (Jardiance) [...] THE EVENING 90 Tablet 1 02/26/2024 Active Pravastatin Sodium 40 MG Oral Tablet (Pravachol)Indicat ions:Type 2 diabetes mellitus with hemoglobin A1c goal of less than 7.0% (HCC),Dyslipidemia , goal LDL below 100 TAKE ONE TABLET BY MOUTH IN THE EVENING 90 Tablet 12/03/2023 4 Discontinue d(Refill) documented as of this encounter (statuses as of 02/26/2024) Active Problems Problem Noted Date Diagnosed Date [...] as of this encounter (statuses as of 02/26/2024) Resolved Problems Problem Noted Date Diagnosed Date [...] per HTN Taxonomy. BENIGN HYPERTENSION 01/03/1998 06/16/20 09 Overview: Modified per HTN Taxonomy. PURE HYPERCHOLESTEROLEM 01/03/1998 12/03/2009 Overview: Per Lipid Taxonomy. Type 2 diabetes mellitus wit h hemoglobin A1c goal of less than 7.0% 12/05/2017 Overview: Diabetes Type II, Controlled ICD-10 update of inactive term documented as of this encounter (statuses as of 02/26/2024) Immunizations Name Administration Dates Next Due COVID-19 mRNA, LNP-s, No Pre serve, 2-Dose Series (Language Learning Class) 08/07/2021,11/29/2020,11/08/2020 COVID-19, LNP-s, No Preserve , Evin-sucrose, Ages 12+ (Pfizer) 11/22/2021 Covid-19, Mrna, Lnp-s, Pf, B ivalent, 30 Mcg, IM, 12 yrs and above (Pfizer) 07/11/2022 Hepatitis B, 20+ yrs 05/08/2018,06/16/2017,04/29 Pneumococcal Conjugate Vacc, 13 Valent (Prevnar) 09/21/2014 Pneumococcal Polysaccharide PPV23 (Pneumovax) 05/20/2012 Seasonal Influenza, PF, 6 M & above, IM , (FluLaval or Fluzone) 05/15/2020,05/08/2018 Seasonal Influenza, Quadriva lent Hd (Fluzone Hd) 04/18/2023,05/03/2022,07/02/2021 Seasonal Influenza, Quadriva lent, No Preserve, IM 04/29/2017,07/01/2016,06/30/2015 07/01/2017 Seasonal Influenza, Split, I IV3, With Preserve, Inj 07/20/2014,04/28/2013,05/20/2012,05/12,05/09/2010,06/17/2008,06/08/20 07,06/03/2006,06/04/2005 06/06/2012 Seasonal Influenza, Trivalen t, Adjuvanted, 65+ yrs 05/19/2019 TD, Preservative Free 10/20/2008 TDAP (age [...] encounter Miscellaneous Notes * Telephone Encounter - Shira Benavidez RP - 02/26/2024 12:47 PM EDTSigned Prescriptions: Disp Refills Pravastatin Sodium 40 MG Oral Tablet (Prav*90 Tab*1 Sig: TAKE ONE TABLET BY MOUTH IN THE EVENINGAuthorizing Provider: LILA COUGHLIN User: SHIRA BENAVIDEZ NN documented in this encounter Plan of Treatment Health Maintenance Due Date Last Done Comments Diabetic Eye Exam 03/08/2023 03/08/2022, , 07/04/2021, Additional history exists COVID-19 Vaccine (2022- season) 2023 07/11/2022, 11/22/2021, 08/07/2021, Additional history exists Depression Screening 05/03/2023 05/03/2022 Albumin/Creatinine Ratio 10/10/2023 03/2 023, 10/16/2021, 10/04/2020, Additional history exists Influenza Vaccine (FLU shot) (#1) 2024 04/18/2023, 05/03/2022, 07/02/2021, Additional history exists GFR 06/05/2024 12/05/2023, 09/0 03/2023, 10/09/2022, Additional history exists HbA1c 06/05/2024 12/05/2023, 09/0 03/2023, 10/09/2022, Additional history exists CKD HGB USE SMARTSET 17056 12/04/202412/04, 12/05/2023, 04/18/2023, Additional history exists CKD PHOS USE SMARTSET 06664 12/04/20242 01/2024, 10/09/2022, 04/02/2021 Diabetic Foot Exam 02/17/2025 02/18/2024, 0 04/09/2021, 10/28/2017, Additional history exists DTaP,Tdap,and Td Vaccines (3 - Td or Tdap) 05/03/2032 [...] as of this encounter Visit Diagnoses Diagnosis Type 2 diabetes mellitus with hemoglobin A1c goal of less than 7.0% (HCC) Dyslipidemia, goal LDL below 100 Other and unspecified hyperlipidemia documented in this encounter Advance Directives Documents on File Type Date Recorded Patient Molding Associate Expl anation Advance Directives and Living Will 12/15/2018 LIVING WILL Power of Clinical Research Specialist 12/15/2018 [facility] Care Teams Military Analyst Relationship Specialty Start Date End Date Lila Coughlin DO [address] [place] [address] PCP - General Family Medicine 04/22/17 documented as of this encounter
--- NOTE | 2024-06-29 00:11 | Communication Note ---
Date of Service: June 29, 2024 Patient noted to be hypotensive SBP 80s as per RN. Patient asymptomatic. AP Hypotension Complicated UTI ? Memantine contributory IVF bolus Cefepime in place of ceftriaxone for broader antibiotic coverage for complicated UTI Hold memantine for now
[2024-06-29] MEDS: SODIUM CHLORIDE 0.9% 500 ML IV ONE (00:15)
[2024-06-29] MEDS: CEFEPIME 2000MG 2,000 MG/20 ML SYR IV SCH (01:21)
[2024-06-29 07:28] LABS: Basophils # (auto) 0.01 K/uL (0.00-0.20); Basophils % (auto) 0.1 %; Eosinophils # (auto) 0.01 K/uL (0.00-0.50); Eosinophils % (auto) 0.1 %; Hematocrit (blood only) 38.2 % (42.0-52.0); Hemoglobin 12.7 g/dl (14.0-18.0); Immature Granulocytes # (auto) 0.09 K/uL (0.01-0.20); Immature Granulocytes % (auto) 0.9 %; Lymphocytes # (auto) 0.83 K/uL (1.20-3.40); Lymphocytes % (auto) 8.2 %; Mean Corpuscular Hemoglobin 33.6 pg (25.0-34.0); Mean Corpuscular Hgb Conc 33.2 g/dL (32.0-36.0); Mean Corpuscular Volume 101.1 fL (80.0-100.0); Mean Platelet Volume 9.4 fL (9.4-12.4); Monocytes # (auto) 0.74 K/uL (0.11-0.59); Monocytes % (auto) 7.3 %; Neutrophils % (auto) 83.4 %; Platelet Count 131 K/uL (130-400); RDW Coefficient of Variation 12.7 % (11.5-14.5); RDW Standard Deviation 47.5 fL (36.4-46.3); Red Blood Count 3.78 M/uL (4.70-6.10); White Blood Count 10.18 K/ul (4.8-10.8)
[2024-06-29 07:47] LABS: BUN Creatinine Ratio 22.2 (10-20); Calcium 8.6 mg/dl (8.6-10.3); Creatinine Clr Calc Pharmacy 50.1 ml/min
[2024-06-29 08:03] LABS: Thyroid Stimulating Hormone 1.067 uIu/ml (0.300-4.500)
[2024-06-29] MEDS: ASPIRIN 81 MG ECTAB PO SCH (08:56)
[2024-06-29] MEDS: ADVANCED PROBIOTIC 625 MG CAPSULE PO SCH (08:56)
--- NOTE | 2024-06-29 08:59 | Electrocardiogram Report ---
Test Reason : Blood Pressure : */* mmHG Vent. Rate : 70 BPM Atrial Rate : 70 BPM P-R Int : 202 ms QRS Dur : 94 ms QT Int : 398 ms P-R-T Axes : 34 49 87 degrees QTcB Int : 429 ms Sinus rhythm with Premature atrial complexes Incomplete right bundle branch block Nonspecific T wave abnormality Abnormal ECG No previous ECGs available Confirmed by Taras Richard ([id number]) on 06/29/2024 8:59:15 AM Referred By: REFERRED SELF Confirmed By: Taras Richard
--- NOTE | 2024-06-29 15:12 | Hospitalist Progress Note ---
Date of Service June 29, 2024 Assessment & Plan (1) Generalized weakness: (2) UTI (urinary tract infection): (3) 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: (4) T2DM (type 2 diabetes mellitus): (5) HTN (hypertension): (6) CKD (chronic kidney disease) stage 3, GFR 30-59 ml/min: Plan 84-year-old male who has significant past medical history of HTN, HLD, T2DM, CKD stage III, GERD, BPH, late onset Alzheimer dementia without behavior disturbance who presents to ED secondary to worsening confusion. He is being managed for the following: Generalized Weakness Acute UTI CXR and respiratory panel negative at presentation. Patient was started on empiric Rocephin on admission, patient was hypotensive overnight and changed to cefepime for broader coverage for possible complicated UTI. Vitals has been fairly stable, follow admitting blood and urine cultures. Patient likely afebrile. PT/OT. 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 feels cognition is at baseline and therefore no encephalopathy component to his UTI continue namenda T2DM: hold jardiance, last a1c was 6.2 in november, A1C in a.m., accuchecks AC/HS, if BSG consistently elevated add sliding scale HTN: chronic, stable, bp on lower side, hold lisinopril for now, resume when appropriate HLD: chronic, stable continue statin CKD-3 - baseline cr 1.1, avoid nephrotoxic agents. DVT ppx: SQ heparin DNR/DNI PCP: Susanne Dispo: admit to [facility] tele, PT/OT consulted, possible to need rehab vs d/c to home with home health Admission and Anticipated Discharge Date Admission Date: June 28, 2024 Subjective Patient was seen and examined at bedside. Patient was lying in bed, on room air, sleeping, woke up to exam but still sleepy. Patient denied pain or chest pain or sore throat or cough. Reported eating okay, could not comment on his last bowel movement. Physical Exam Physical Exam: Gen: Thin, elderly, M, NAD, A&O to self HEENT: Normocephalic, atraumatic, conjunctivae moist, sclerae anicteric, mucous membranes moist with poor dentition Lung: Clear to Auscultation bilaterally, diminished at bases due to poor insp effort, no wheezes/rales/rhonchi Heart: Regular rate, regular rhythm, 2/6 EMILIANO LUSB, no rubs, or gallops Abdomen: Soft, NT, ND +BS x 4 Extremities: No edema Skin: Warm, no rash, negative turgor. Results & Data Results & Data Vital Signs (Past 12 Hours) Vital Signs Temp Pulse Pulse Resp BP Pulse Ox O2 Del Method 06/29/24 11:38 37.1 C 60 16 100/59 L 96 Room Air 06/29/24 07:44 36.5 C 60 18 116/67 93 Room Air 06/29/24 07:19 Room Air 06/29/24 07:15 68 06/29/24 04:09 36.5 C 69 20 112/64 93 Room Air (2) UTI (urinary tract infection) Hematuria presence: without hematuria Urinary tract infection type: acute cystitis Qualified Code(s): N30.00 - Acute cystitis without hematuria
[2024-06-29 16:01] LABS: A calco-baum cmplx NotReported Not Detected (NotDetected); Bact fragilis Not Reported Not Detected (NotDetected); Blood Culture Id Panel See PCR Comment (NotDetected); C auris Not Reported Not Detected (NotDetected); Calbicans Not Reported Not Detected (NotDetected); Candida glabrata Not Reported Not Detected (NotDetected); Candida krusei Not Reported Not Detected (NotDetected); Cneoformans/gatti Not Reported Not Detected (NotDetected); Cparapsilosis Not Reported Not Detected (NotDetected); E cloacae compx Not Reported Not Detected (NotDetected); Efaecalis Not Reported Not Detected (NotDetected); Efaecium Not Reported Not Detected (NotDetected); Enterobacterales Not Reported Not Detected (NotDetected); Escherichia coli Not Reported Not Detected (NotDetected); H influenzae Not Reported Not Detected (NotDetected); K aerogenes Not Reported Not Detected (NotDetected); Koxytoca Not Reported Not Detected (NotDetected); Kpneumoniae grp Not Reported Not Detected (NotDetected); Lmonocyt Not Reported Not Detected (NotDetected); N meningitidis Not Reported Not Detected (NotDetected); P aeruginosa Not Reported Not Detected (NotDetected); Proteus spp Not Reported Not Detected (NotDetected); Salmonella spp Not Reported Not Detected (NotDetected); Staph lugdunensis Not Reported Not Detected (NotDetected); Staph spp. Not Reported DETECTED (NotDetected); Staphaureus Not Reported Not Detected (NotDetected); Staphepi Not Reported DETECTED (NotDetected); Stenmaltophilia Not Reported Not Detected (NotDetected); Strep agal(GrpB) Not Reported Not Detected (NotDetected); Strep pneum Not Reported Not Detected (NotDetected); Strep pyog (GrpA) Not Reported Not Detected (NotDetected); Strep spp Not Reported Not Detected (NotDetected); mecAC Resistant Gene Not Detected (NotDetected)
[2024-06-29 16:15] LABS: Staphylococcus spp. DETECTED (NotDetected)
[2024-06-29 16:16] LABS: Staphylococcus epidermidis DETECTED (NotDetected)
[2024-06-29 17:43] LABS: Estimated Average Glucose 123 mg/dl; Hemoglobin A1C 5.9 % (4.5-5.6)
[2024-06-29] MEDS: HALOPERIDOL LACTATE 5 MG/ML 1 ML VIAL IM STA (22:31)
[2024-06-29] MEDS: HALOPERIDOL LACTATE 5 MG/ML 1 ML VIAL ONE (22:37)
[2024-06-29] MEDS: SODIUM CHLORIDE 0.9% 1,000 ML IV ONE (23:07)
[2024-06-29] MEDS: PROMETHAZINE 6.25 MG/50.25 ML BAG IV PRN (23:18)
[2024-06-30] MEDS: HALOPERIDOL LACTATE 5 MG/ML 1 ML VIAL IM PRN (00:52)
[2024-06-30 06:58] LABS: Hematocrit (blood only) 39.3 % (42.0-52.0); Hemoglobin 13.4 g/dl (14.0-18.0); Mean Corpuscular Hemoglobin 34.1 pg (25.0-34.0); Mean Corpuscular Hgb Conc 34.1 g/dL (32.0-36.0); Mean Platelet Volume 9.8 fL (9.4-12.4); Platelet Count 141 K/uL (130-400); RDW Coefficient of Variation 12.3 % (11.5-14.5); RDW Standard Deviation 45.9 fL (36.4-46.3); Red Blood Count 3.93 M/uL (4.70-6.10); White Blood Count 7.32 K/ul (4.8-10.8)
[2024-06-30 07:12] LABS: BUN Creatinine Ratio 21.2 (10-20); Calcium 8.8 mg/dl (8.6-10.3); Creatinine Clr Calc Pharmacy 42.1 ml/min; Magnesium 2.1 mg/dl (1.7-2.4); Phosphorus 1.9 mg/dl (2.5-4.9); Potassium 3.9 mmol/L (3.5-5.1)
[2024-06-30] MEDS: cefTRIAXone SODIUM 2,000 MG/50 ML BAG IV SCH (08:38)
--- NOTE | 2024-06-30 11:39 | Ultrasound Report ---
RENAL ULTRASOUND CLINICAL HISTORY: UTI, rule out obstruction COMPARISON STUDY: CT of the abdomen and pelvis February 21, 2020 TECHNIQUE: Sonography of the kidneys and the urinary bladder was performed. FINDINGS: The right kidney measures 10.5 cm in maximal dimension and the left measures 11.5 cm. There is no hydronephrosis. No renal calculus or mass is identified. Renal echogenicity, size and cortical thickness are normal. The ureteral jets were not visualized. Mild bladder wall thickening is noted. IMPRESSION: Unremarkable sonographic appearance of the kidneys. No hydronephrosis. ACT 112: Negative or not required by law. Electronically signed by: Nathaniel Grajeda M.D. 06/30/2024 11:38 AM
--- NOTE | 2024-06-30 13:57 | Hospitalist Progress Note ---
Date of Service June 30, 2024 Assessment & Plan (1) Generalized weakness: (2) UTI (urinary tract infection): (3) 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: (4) T2DM (type 2 diabetes mellitus): (5) HTN (hypertension): (6) CKD (chronic kidney disease) stage 3, GFR 30-59 ml/min: Plan 84-year-old male who has significant past medical history of HTN, HLD, T2DM, CKD stage III, GERD, BPH, late onset Alzheimer dementia without behavior disturbance who presents to ED secondary to worsening confusion. He is being managed for the following: Metabolic encephalopathy Generalized Weakness Acute UTI Patient presented to the hospital with worsening confusion CXR and respiratory panel negative at presentation. Urinalysis history of infection. Urine culture growing E. coli; pansensitive. 1 out of 4 blood culture positive for Staph epidermidis; likely contaminant. Renal ultrasound does not show hydronephrosis Continue on ceftriaxone; plan to treat with antibiotic for at least 7 days Delirium precaution One-to-one observation as needed 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 feels cognition is at baseline and therefore no encephalopathy component to his UTI continue namenda T2DM: hold jardiance, last a1c was 6.2 in november, accuchecks AC/HS, if BSG consistently elevated add sliding scale HTN: chronic, stable, bp on lower side, hold lisinopril for now, HLD: chronic, stable continue statin CKD-3 - baseline cr 1.1, avoid nephrotoxic agents. DVT ppx: SQ heparin DNR/DNI PCP: Benjir Dispo: admit to med tele, PT/OT consulted, possible to need rehab vs d/c to home with home health Please note the above document was generated using voice recognition software. It may contain grammatical, syntax or spelling errors. Any formal questions or concerns about the content, text or information contained within the body of this dictation should be directly addressed to the provider for clarification Admission and Anticipated Discharge Date Admission Date: June 28, 2024 Subjective Patient seen and examined at bedside. Overnight, he was agitated; requiring mittens. He is awake and oriented to self. He is not sure where he is. He is able to answer most of the questions. Vital signs are stable Review of Systems Review of Systems: All systems reviewed & are unremarkable except as noted in Subjective Physical Exam Physical Exam: Gen: Thin, elderly, M, NAD, A&O to self HEENT: Normocephalic, atraumatic, conjunctivae moist, sclerae anicteric, mucous membranes moist with poor dentition Lung: Clear to Auscultation bilaterally, diminished at bases due to poor insp effort, no wheezes/rales/rhonchi Heart: Regular rate, regular rhythm, 2/6 EMILIANO LUSB, no rubs, or gallops Abdomen: Soft, NT, ND +BS x 4 Extremities: No edema Skin: Warm, no rash, negative turgor. Results & Data Results & Data Vital Signs (Past 12 Hours) Vital Signs Temp Pulse Pulse Resp BP BP Pulse Ox 06/30/24 11:33 36.7 C 57 L 16 106/78 100 06/30/24 08:29 67 06/30/24 07:44 36.8 C 63 20 109/43 L 100 06/30/24 07:38 O2 Del Method O2 Flow Rate 06/30/24 11:33 Nasal Cannula 3 06/30/24 08:29 06/30/24 07:44 Room Air 06/30/24 07:38 Room Air (2) UTI (urinary tract infection) Hematuria presence: without hematuria Urinary tract infection type: acute cystitis Qualified Code(s): N30.00 - Acute cystitis without hematuria
--- NOTE | 2024-07-01 08:43 | Hospitalist Progress Note ---
Date of Service July 01, 2024 Assessment & Plan (1) Generalized weakness: (2) UTI (urinary tract infection): (3) 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: (4) T2DM (type 2 diabetes mellitus): (5) HTN (hypertension): (6) CKD (chronic kidney disease) stage 3, GFR 30-59 ml/min: Plan 84-year-old male who has significant past medical history of HTN, HLD, T2DM, CKD stage III, GERD, BPH, late onset Alzheimer dementia without behavior disturbance who presents to ED secondary to worsening confusion. He is being managed for the following: Metabolic encephalopathy Generalized Weakness Acute UTI Patient presented to the hospital with worsening confusion CXR and respiratory panel negative at presentation. Urinalysis history of infection. Urine culture growing E. coli; pansensitive. 1 out of 4 blood culture positive for Staph epidermidis; likely contaminant. 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 DVT ppx: SQ heparin DNR/DNI PCP: Susanne Dispo: PT/OT recommend rehab. awaiting placement. Please note the above document was generated using voice recognition software. It may contain grammatical, syntax or spelling errors. Any formal questions or concerns about the content, text or information contained within the body of this dictation should be directly addressed to the provider for clarification Admission and Anticipated Discharge Date Admission Date: June 28, 2024 Subjective Overnight, patient was not agitated. He is calm and cooperative. Vital signs are stable and he is afebrile Review of Systems Review of Systems: All systems reviewed & are unremarkable except as noted in Subjective Physical Exam Physical Exam: Gen: Thin, elderly, M, NAD, A&O to self HEENT: Normocephalic, atraumatic, conjunctivae moist, sclerae anicteric, mucous membranes moist with poor dentition Lung: Clear to Auscultation bilaterally, diminished at bases due to poor insp effort, no wheezes/rales/rhonchi Heart: Regular rate, regular rhythm, 2/6 EMILIANO LUSB, no rubs, or gallops Abdomen: Soft, NT, ND +BS x 4 Extremities: No edema Skin: Warm, no rash, negative turgor. Results & Data Results & Data Vital Signs (Past 12 Hours) Vital Signs Temp Pulse Pulse Resp BP BP Pulse Ox 07/01/24 08:13 36.8 C 57 L 16 110/67 96 07/01/24 07:32 07/01/24 07:06 48 L 07/01/24 03:23 36.8 C 90 18 153/69 H 99 07/01/24 00:51 37.4 C 66 16 151/62 H 96 06/30/24 21:53 61 O2 Del Method 07/01/24 08:13 Room Air 07/01/24 07:32 Room Air 07/01/24 07:06 07/01/24 03:23 Room Air 07/01/24 00:51 Room Air 06/30/24 21:53 (2) UTI (urinary tract infection) Hematuria presence: without hematuria Urinary tract infection type: acute cystitis Qualified Code(s): N30.00 - Acute cystitis without hematuria
[2024-07-01 13:07] LABS: Basophils # (auto) 0.02 K/uL (0.00-0.20); Basophils % (auto) 0.4 %; Eosinophils # (auto) 0.26 K/uL (0.00-0.50); Eosinophils % (auto) 5.8 %; Hematocrit (blood only) 37.6 % (42.0-52.0); Hemoglobin 12.9 g/dl (14.0-18.0); Immature Granulocytes # (auto) 0.03 K/uL (0.01-0.20); Immature Granulocytes % (auto) 0.7 %; Lymphocytes # (auto) 0.71 K/uL (1.20-3.40); Mean Corpuscular Hemoglobin 33.6 pg (25.0-34.0); Mean Corpuscular Hgb Conc 34.3 g/dL (32.0-36.0); Mean Corpuscular Volume 97.9 fL (80.0-100.0); Mean Platelet Volume 9.2 fL (9.4-12.4); Monocytes # (auto) 0.49 K/uL (0.11-0.59); Neutrophils # (auto) 2.94 K/uL (1.40-6.50); Neutrophils % (auto) 66.1 %; Platelet Count 145 K/uL (130-400); RDW Coefficient of Variation 12.5 % (11.5-14.5); RDW Standard Deviation 44.8 fL (36.4-46.3); Red Blood Count 3.84 M/uL (4.70-6.10); White Blood Count 4.45 K/ul (4.8-10.8)
[2024-07-01 13:30] LABS: BUN Creatinine Ratio 26.3 (10-20); Calcium 8.5 mg/dl (8.6-10.3)
--- NOTE | 2024-07-02 09:11 | Hospitalist Progress Note ---
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 He is being managed for the following: Metabolic encephalopathy Generalized Weakness Acute UTI Patient presented to the hospital with worsening confusion CXR and respiratory panel negative at presentation. Urinalysis history of infection. Urine culture growing E. coli; pansensitive. 1 out of 4 blood culture positive for Staph epidermidis; likely contaminant. 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 DVT ppx: SQ heparin DNR/DNI PCP: Susanne Dispo: PT/OT recommend rehab. awaiting placement; referral sent. Please note the above document was generated using voice recognition software. It may contain grammatical, syntax or spelling errors. Any formal questions or concerns about the content, text or information contained within the body of this dictation should be directly addressed to the provider for clarification Admission and Anticipated Discharge Date Admission Date: June 28, 2024 Subjective Patient seen and examined at bedside. He is calm and cooperative; not in any distress No significant events overnight Review of Systems Review of Systems: All systems reviewed & are unremarkable except as noted in Subjective Physical Exam Physical Exam: Gen: Thin, elderly, M, NAD, A&O to self HEENT: Normocephalic, atraumatic, conjunctivae moist, sclerae anicteric, mucous membranes moist with poor dentition Lung: Clear to Auscultation bilaterally, diminished at bases due to poor insp effort, no wheezes/rales/rhonchi Heart: Regular rate, regular rhythm, 2/6 EMILIANO LUSB, no rubs, or gallops Abdomen: Soft, NT, ND +BS x 4 Extremities: No edema Skin: Warm, no rash, negative turgor. Results & Data Results & Data Vital Signs (Past 12 Hours) Vital Signs Temp Pulse Pulse Resp BP BP Pulse Ox 07/02/24 07:58 36.4 C L 64 16 123/61 95 07/02/24 07:00 59 L 07/02/24 03:55 36.3 C L 67 20 144/52 H 94 07/01/24 23:33 36.9 C 70 18 153/72 H 95 07/01/24 21:40 75 O2 Del Method 07/02/24 07:58 Room Air 07/02/24 07:00 07/02/24 03:55 Room Air 07/01/24 23:33 Room Air 07/01/24 21:40 (2) UTI (urinary tract infection) Hematuria presence: without hematuria Urinary tract infection type: acute cystitis Qualified Code(s): N30.00 - Acute cystitis without hematuria
--- NOTE | 2024-07-03 09:36 | Hospitalist Progress Note ---
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 He is being managed for the following: Metabolic encephalopathy Generalized Weakness Acute UTI Patient presented to the hospital with worsening confusion CXR and respiratory panel negative at presentation. Urinalysis history of infection. Urine culture growing E. coli; pansensitive. 1 out of 4 blood culture positive for Staph epidermidis; contaminant. 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 DVT ppx: SQ heparin DNR/DNI PCP: Susanne Dispo: PT/OT recommend rehab. awaiting placement; referral sent. Please note the above document was generated using voice recognition software. It may contain grammatical, syntax or spelling errors. Any formal questions or concerns about the content, text or information contained within the body of this dictation should be directly addressed to the provider for clarification Admission and Anticipated Discharge Date Admission Date: June 28, 2024 Subjective Patient seen and examined at bedside. He is sitting up on the chair at the side of the bed eating breakfast No periods of agitation Vital signs are stable Review of Systems Review of Systems: All systems reviewed & are unremarkable except as noted in Subjective Physical Exam Physical Exam: Gen: Thin, elderly, M, NAD, A&O to self HEENT: Normocephalic, atraumatic, conjunctivae moist, sclerae anicteric, mucous membranes moist with poor dentition Lung: Clear to Auscultation bilaterally, diminished at bases due to poor insp effort, no wheezes/rales/rhonchi Heart: Regular rate, regular rhythm, 2/6 EMILIANO LUSB, no rubs, or gallops Abdomen: Soft, NT, ND +BS x 4 Extremities: No edema Skin: Warm, no rash, negative turgor. Results & Data Results & Data Vital Signs (Past 12 Hours) Vital Signs Temp Pulse Pulse Resp BP Pulse Ox O2 Del Method 07/03/24 07:41 36.9 C 65 20 132/59 L 91 Room Air 07/03/24 07:00 66 07/02/24 23:38 64 07/02/24 22:11 36.6 C 61 18 118/65 94 Room Air (2) UTI (urinary tract infection) Hematuria presence: without hematuria Urinary tract infection type: acute cystitis Qualified Code(s): N30.00 - Acute cystitis without hematuria
--- NOTE | 2024-07-04 10:47 | Hospitalist Progress Note ---
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 He is being managed for the following: Metabolic encephalopathy Generalized Weakness Acute UTI Patient presented to the hospital with worsening confusion CXR and respiratory panel negative at presentation. Urinalysis history of infection. Urine culture growing E. coli; pansensitive. 1 out of 4 blood culture positive for Staph epidermidis; contaminant. 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 DVT ppx: SQ heparin DNR/DNI PCP: Susanne Dispo: PT/OT recommend rehab. Discussed with family regarding placement on 07/04; we discussed repeat PT OT evaluation tomorrow to see if patient can return home with home PT OT as family will prefer it than rehab. Please note the above document was generated using voice recognition software. It may contain grammatical, syntax or spelling errors. Any formal questions or concerns about the content, text or information contained within the body of this dictation should be directly addressed to the provider for clarification Admission and Anticipated Discharge Date Admission Date: June 28, 2024 Subjective Patient continues to be pleasantly confused; No periods of agitation overnight Vital signs remained stable No significant events overnight Family at bedside Review of Systems Review of Systems: All systems reviewed & are unremarkable except as noted in Subjective Physical Exam Physical Exam: Gen: Thin, elderly, M, NAD, A&O to self HEENT: Normocephalic, atraumatic, conjunctivae moist, sclerae anicteric, mucous membranes moist with poor dentition Lung: Clear to Auscultation bilaterally, diminished at bases due to poor insp effort, no wheezes/rales/rhonchi Heart: Regular rate, regular rhythm, 2/6 EMILIANO LUSB, no rubs, or gallops Abdomen: Soft, NT, ND +BS x 4 Extremities: No edema Skin: Warm, no rash, negative turgor. Results & Data Results & Data Vital Signs (Past 12 Hours) Vital Signs Temp Pulse Resp BP Pulse Ox O2 Del Method 07/04/24 07:40 36.6 C 60 18 134/60 96 Room Air (2) UTI (urinary tract infection) Hematuria presence: without hematuria Urinary tract infection type: acute cystitis Qualified Code(s): N30.00 - Acute cystitis without hematuria
[2024-07-04] MEDS: CEFDINIR 300 MG CAP PO SCH (10:51)
--- NOTE | 2024-07-05 08:11 | Hospitalist Progress Note ---
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 He is being managed for the following: Metabolic encephalopathy Generalized Weakness Acute UTI Patient presented to the hospital with worsening confusion CXR and respiratory panel negative at presentation. Urinalysis history of infection. Urine culture growing E. coli; pansensitive. 1 out of 4 blood culture positive for Staph epidermidis; contaminant. Renal ultrasound does not show hydronephrosis Patient treated with ceftriaxone; changed to oral cefdinir on 07/04; plan to treat for 7 days. 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 DVT ppx: SQ heparin DNR/DNI PCP: Susanne Dispo: PT/OT recommend rehab. Discussed with family regarding placement on 07/04; we discussed repeat PT OT evaluation today to see if patient can return home with home PT OT as family will prefer him coming home rather than to go to rehab. However, repeat PT/OT evaluation suggested 03/03 care which is not possib le at home. Plan to discharge him to rehab when bed is available. Please note the above document was generated using voice recognition software. It may contain grammatical, syntax or spelling errors. Any formal questions or concerns about the content, text or information contained within the body of this dictation should be directly addressed to the provider for clarification Admission and Anticipated Discharge Date Admission Date: June 28, 2024 Subjective Patient seen and examined at bedside. He is comfortable; not in distress. No periods of agitation overnight Review of Systems Review of Systems: All systems reviewed & are unremarkable except as noted in Subjective Physical Exam Physical Exam: Gen: Thin, elderly, M, NAD, A&O to self HEENT: Normocephalic, atraumatic, conjunctivae moist, sclerae anicteric, mucous membranes moist with poor dentition Lung: Clear to Auscultation bilaterally, diminished at bases due to poor insp effort, no wheezes/rales/rhonchi Heart: Regular rate, regular rhythm, 2/6 EMILIANO LUSB, no rubs, or gallops Abdomen: Soft, NT, ND +BS x 4 Extremities: No edema Skin: Warm, no rash, negative turgor. Results & Data Results & Data Vital Signs (Past 12 Hours) Vital Signs Temp Pulse Resp BP Pulse Ox O2 Del Method 07/05/24 07:30 36.7 C 58 L 18 142/67 H 95 Room Air 07/04/24 21:02 36.7 C 60 18 155/67 H 96 Room Air (2) UTI (urinary tract infection) Hematuria presence: without hematuria Urinary tract infection type: acute cystitis Qualified Code(s): N30.00 - Acute cystitis without hematuria
[2024-07-05 13:32] LABS: Hematocrit (blood only) 45.2 % (42.0-52.0); Hemoglobin 15.1 g/dl (14.0-18.0); Mean Corpuscular Hemoglobin 32.7 pg (25.0-34.0); Mean Corpuscular Hgb Conc 33.4 g/dL (32.0-36.0); Mean Corpuscular Volume 97.8 fL (80.0-100.0); Mean Platelet Volume 8.4 fL (9.4-12.4); Platelet Count 261 K/uL (130-400); RDW Coefficient of Variation 12.3 % (11.5-14.5); RDW Standard Deviation 44.5 fL (36.4-46.3); Red Blood Count 4.62 M/uL (4.70-6.10); White Blood Count 4.43 K/ul (4.8-10.8)
[2024-07-05 13:48] LABS: BUN Creatinine Ratio 19.5 (10-20); Calcium 9.8 mg/dl (8.6-10.3); Creatinine Clr Calc Pharmacy 38.8 ml/min; Potassium 4.4 mmol/L (3.5-5.1)
[2024-07-05 13:51] LABS: Basophils # (auto) 0.03 K/uL (0.00-0.20); Basophils % (auto) 0.7 %; Eosinophils # (auto) 0.25 K/uL (0.00-0.50); Eosinophils % (auto) 5.6 %; Immature Granulocytes # (auto) 0.01 K/uL (0.01-0.20); Immature Granulocytes % (auto) 0.2 %; Lymphocytes # (auto) 1.44 K/uL (1.20-3.40); Lymphocytes % (auto) 32.5 %; Monocytes # (auto) 0.64 K/uL (0.11-0.59); Monocytes % (auto) 14.4 %; Neutrophils # (auto) 2.06 K/uL (1.40-6.50); Neutrophils % (auto) 46.6 %
[2024-07-06] MEDS: LORazepam 2 MG/1 ML VIAL IM STA (01:39)
[2024-07-06] MEDS: LORazepam 2 MG/1 ML VIAL IV STA (03:00)
--- NOTE | 2024-07-06 12:18 | Hospitalist Progress Note ---
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 He is being managed for the following: Metabolic encephalopathy Generalized Weakness Acute UTI Patient presented to the hospital with worsening confusion CXR and respiratory panel negative at presentation. Urinalysis history of infection. Urine culture growing E. coli; pansensitive. 1 out of 4 blood culture positive for Staph epidermidis; contaminant. Renal ultrasound does not show hydronephrosis Patient treated with antibiotic for 7 days Delirium precaution One-to-one observation as needed; had not required one to one since 06/30; But patient got agitated last night and is currently on one-to-one. Also received Haldol on 07/06. 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 DVT ppx: SQ heparin DNR/DNI PCP: Susanne Dispo: PT/OT recommend rehab. Discussed with family regarding placement on 07/04; we discussed repeat PT OT evaluation today to see if patient can return home with home PT OT as family will prefer him coming home rather than to go to rehab. However, repeat PT/OT evaluation suggested 03/03 care which is not possible at home. Plan to discharge him to rehab when bed is available. Please note the above document was generated using voice recognition software. It may contain grammatical, syntax or spelling errors. Any formal questions or concerns about the content, text or information contained within the body of this dictation should be directly addressed to the provider for clarification Admission and Anticipated Discharge Date Admission Date: June 28, 2024 Subjective Patient seen and examined at bedside. He appears comfortable and sleeping soundly Vital signs are stable and he is saturating well on room air. Review of Systems Review of Systems: All systems reviewed & are unremarkable except as noted in Subjective Physical Exam Physical Exam: Gen: Thin, elderly, M, NAD, A&O to self HEENT: Normocephalic, atraumatic, conjunctivae moist, sclerae anicteric, mucous membranes moist with poor dentition Lung: Clear to Auscultation bilaterally, diminished at bases due to poor insp effort, no wheezes/rales/rhonchi Heart: Regular rate, regular rhythm, 2/6 EMILIANO LUSB, no rubs, or gallops Abdomen: Soft, NT, ND +BS x 4 Extremities: No edema Skin: Warm, no rash, negative turgor. Results & Data Results & Data Vital Signs (Past 12 Hours) Vital Signs Temp Pulse Pulse Resp BP Pulse Ox O2 Del Method 07/06/24 09:55 Room Air 07/06/24 09:00 36.9 C 65 20 123/66 97 Room Air 07/06/24 07:25 36.4 C L 68 18 138/79 97 Room Air (2) UTI (urinary tract infection) Hematuria presence: without hematuria Urinary tract infection type: acute cystitis Qualified Code(s): N30.00 - Acute cystitis without hematuria
[2024-07-07] MEDS: diphenhydrAMINE Capsule 25 MG CAP PO ONE (02:56)
--- NOTE | 2024-07-07 17:04 | Hospitalist Progress Note ---
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 He is being managed for the following: Metabolic encephalopathy Generalized Weakness Acute UTI --CXR and respiratory panel negative at presentation. -- Urine culture grew E. coli --CT head:No acute intracranial findings. --1 out of 4 blood culture positive for Staph epidermidis; contaminant. 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 DVT Px: SQ heparin CODE STATUS DNR/DNI Disposition: SNF when accepted Admission and Anticipated Discharge Date Admission Date: June 28, 2024 Subjective Patient is seen and examined at bedside Pleasantly confused during my encounter Sitter at bedside No distress on exam Offers no complaints Waiting for placement Review of Systems Review of Systems: All systems reviewed & are unremarkable except as noted in Subjective Physical Exam Physical Exam: Physical Exam: Vitals signs as noted above General Appearance:Moderately built and nourished, no apparent distress Head: normocephalic, Atraumatic Eyes: normal inspection, EOMI Neck: supple, Trachea midline Respiratory/Chest: Normal breath sounds, CTA, No accessory muscle use Cardiovascular: S1, S2, + murmur Abdomen/GI:Soft, Non tender, Bowel sounds present Extremities/Musculoskeletal:normal inspection, no edema Neurologic/Psych:AAOX1, grossly no focal neurological deficits Skin: normal color, warm Results & Data Results & Data Vital Signs (Past 12 Hours) Vital Signs Temp Pulse Resp BP Pulse Ox O2 Del Method 07/07/24 14:48 36.4 C L 62 16 101/58 L 96 Room Air 07/07/24 09:00 36.5 C 65 18 128/72 96 Room Air (2) UTI (urinary tract infection) Hematuria presence: without hematuria Urinary tract infection type: acute cystitis Qualified Code(s): N30.00 - Acute cystitis without hematuria
[2024-07-07] MEDS: LORATADINE 10 MG TAB PO ONE (21:38)
[2024-07-08 06:40] LABS: Hematocrit (blood only) 40.7 % (42.0-52.0); Hemoglobin 14.1 g/dl (14.0-18.0); Mean Corpuscular Hemoglobin 33.4 pg (25.0-34.0); Mean Corpuscular Hgb Conc 34.6 g/dL (32.0-36.0); Mean Corpuscular Volume 96.4 fL (80.0-100.0); Mean Platelet Volume 8.8 fL (9.4-12.4); Platelet Count 300 K/uL (130-400); RDW Coefficient of Variation 11.9 % (11.5-14.5); RDW Standard Deviation 42.2 fL (36.4-46.3); Red Blood Count 4.22 M/uL (4.70-6.10)
[2024-07-08 07:01] LABS: BUN Creatinine Ratio 21.3 (10-20); Calcium 9.1 mg/dl (8.6-10.3); Creatinine Clr Calc Pharmacy 52.8 ml/min; Potassium 4.1 mmol/L (3.5-5.1)
[2024-07-08] MEDS: POLYETHYLENE (MIRALAX) 17 GM PACK PO PRN (12:56)
--- NOTE | 2024-07-08 14:28 | Hospitalist Progress Note ---
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 He is being managed for the following: Metabolic encephalopathy Generalized Weakness Acute UTI --CXR and respiratory panel negative at presentation. -- Urine culture grew E. coli --CT head:No acute intracranial findings. --1 out of 4 blood culture positive for Staph epidermidis; contaminant. 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 DVT Px: SQ heparin CODE STATUS DNR/DNI Disposition: SNF when accepted Admission and Anticipated Discharge Date Admission Date: June 28, 2024 Subjective Patient is seen and examined at bedside No distress on exam Poor historian secondary to dementia Waiting for placement Review of Systems Review of Systems: All systems reviewed & are unremarkable except as noted in Subjective Physical Exam Physical Exam: Physical Exam: Vitals signs as noted above General Appearance:Moderately built and nourished, no apparent distress Head: normocephalic, Atraumatic Eyes: normal inspection, EOMI Neck: supple, Trachea midline Respiratory/Chest: Normal breath sounds, CTA, No accessory muscle use Cardiovascular: S1, S2, + murmur Abdomen/GI:Soft, Non tender, Bowel sounds present Extremities/Musculoskeletal:normal inspection, no edema Neurologic/Psych:AAOX1, grossly no focal neurological deficits Skin: normal color, warm Results & Data Results & Data Vital Signs (Past 12 Hours) Vital Signs Temp Pulse Resp BP Pulse Ox O2 Del Method 07/08/24 07:25 36.5 C 57 L 16 135/68 93 Room Air Laboratory Results Short CBC 07/08/24 Range/Units 05:17 WBC 4.40 L (4.8-10.8) K/ul Hgb 14.1 (14.0-18.0) g/dl Hct 40.7 L (42.0-52.0) % Plt Count 300 (130-400) K/uL BMP 07/08/24 05:17 Sodium 142 Potassium 4.1 Chloride 108 H Carbon Dioxide 26 BUN 20 Creatinine 0.94 Glucose 101 H Calcium 9.1 (2) UTI (urinary tract infection) Hematuria presence: without hematuria Urinary tract infection type: acute cystitis Qualified Code(s): N30.00 - Acute cystitis without hematuria
[2024-07-08] MEDS: DOCUSATE SODIUM/SENNA 50/8.6MG TAB PO SCH (16:22)
--- NOTE | 2024-07-09 09:01 | XRay Report ---
[facility] CLINICAL HISTORY: Constipation. COMPARISON STUDY: CT of the abdomen and pelvis February 21, 2024 and renal ultrasound June 30, 2024. FINDINGS: The bowel gas pattern is normal. There is a large amount stool within the colon and moderat e amount of stool within the rectum. No urinary calculi are identified. IMPRESSION: 1. No evidence for a bowel obstruction. 2. Moderate amount of stool within the rectum and large amount of stool within the colon. ACT 112: Negative or not required by law. Electronically signed by: Nathaniel Grajeda M.D. 07/09/2024 8:59 AM
[2024-07-09] MEDS: lisinopril 10 MG TAB PO SCH (09:08)
[2024-07-09] MEDS: bisacodyL 10 MG SUPP PR PRN (09:14)
--- NOTE | 2024-07-09 16:32 | Hospitalist Progress Note ---
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 He is being managed for the following: Metabolic encephalopathy Generalized Weakness Acute UTI --CXR and respiratory panel negative at presentation. -- Urine culture grew E. coli --CT head:No acute intracranial findings. --1 out of 4 blood culture positive for Staph epidermidis; contaminant. 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 DVT Px: SQ heparin CODE STATUS DNR/DNI Disposition: SNF when accepted Admission and Anticipated Discharge Date Admission Date: June 28, 2024 Subjective Patient is seen and examined at bedside No new complaints Pleasant during my encounter Poor historian secondary to dementia Waiting for placement Blood pressure variable Review of Systems Review of Systems: All systems reviewed & are unremarkable except as noted in Subjective Physical Exam Physical Exam: Physical Exam: Vitals signs as noted above General Appearance:Moderately built and nourished, no apparent distress Head: normocephalic, Atraumatic Eyes: normal inspection, EOMI Neck: supple, Trachea midline Respiratory/Chest: Normal breath sounds, CTA, No accessory muscle use Cardiovascular: S1, S2, + murmur Abdomen/GI:Soft, Non tender, Bowel sounds present Extremities/Musculoskeletal:normal inspection, no edema Neurologic/Psych:AAOX1, grossly no focal neurological deficits Skin: normal color, warm Results & Data Results & Data Vital Signs (Past 12 Hours) Vital Signs Temp Pulse Resp BP Pulse Ox O2 Del Method 07/09/24 15:53 36.7 C 61 16 92/57 L 95 Room Air 07/09/24 07:55 36.5 C 62 18 159/67 H 97 Room Air 07/09/24 07:20 Room Air (2) UTI (urinary tract infection) Hematuria presence: without hematuria Urinary tract infection type: acute cystitis Qualified Code(s): N30.00 - Acute cystitis without hematuria
[2024-07-10] MEDS: lisinopril 5 MG TAB PO SCH (08:15)
--- NOTE | 2024-07-10 15:33 | Hospitalist Progress Note ---
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 He is being managed for the following: Metabolic encephalopathy Generalized Weakness Acute UTI --CXR and respiratory panel negative at presentation. -- Urine culture grew E. coli --CT head:No acute intracranial findings. --1 out of 4 blood culture positive for Staph epidermidis; contaminant. 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 DVT Px: SQ heparin CODE STATUS DNR/DNI Disposition: SNF when accepted Case management to help with discharge planning Admission and Anticipated Discharge Date Admission Date: June 28, 2024 Subjective Patient is seen and examined at bedside Pleasantly confused No distress on exam Poor historian secondary to dementia Waiting for placement Review of Systems Review of Systems: Other Physical Exam Physical Exam: Physical Exam: Vitals signs as noted above General Appearance:Moderately built and nourished, no apparent distress Head: normocephalic, Atraumatic Eyes: normal inspection, EOMI Neck: supple, Trachea midline Respiratory/Chest: Normal breath sounds, CTA, No accessory muscle use Cardiovascular: S1, S2, + murmur Abdomen/GI:Soft, Non tender, Bowel sounds present Extremities/Musculoskeletal:normal inspection, no edema Neurologic/Psych:AAOX1, grossly no focal neurological deficits Skin: normal color, warm Results & Data Results & Data Vital Signs (Past 12 Hours) Vital Signs Temp Pulse Resp BP 07/10/24 07:57 36.7 C 61 18 125/63 (2) UTI (urinary tract infection) Hematuria presence: without hematuria Urinary tract infection type: acute cystitis Qualified Code(s): N30.00 - Acute cystitis without hematuria
--- NOTE | 2024-07-11 14:51 | Hospitalist Progress Note ---
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 He is being managed for the following: Metabolic encephalopathy Generalized Weakness Acute UTI --CXR and respiratory panel negative at presentation. -- Urine culture grew E. coli --CT head:No acute intracranial findings. --1 out of 4 blood culture positive for Staph epidermidis; contaminant. 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 DVT Px: SQ heparin CODE STATUS DNR/DNI Disposition: SNF when accepted Case management to help with discharge planning Admission and Anticipated Discharge Date Admission Date: June 28, 2024 Subjective Patient is seen and examined at bedside Poor historian secondary to dementia Waiting for placement No distress on exam today Review of Systems Review of Systems: Other Physical Exam Physical Exam: Physical Exam: Vitals signs as noted above General Appearance:Moderately built and nourished, no apparent distress Head: normocephalic, Atraumatic Eyes: normal inspection, EOMI Neck: supple, Trachea midline Respiratory/Chest: Normal breath sounds, CTA, No accessory muscle use Cardiovascular: S1, S2, + murmur Abdomen/GI:Soft, Non tender, Bowel sounds present Extremities/Musculoskeletal:normal inspection, no edema Neurologic/Psych:AAOX1, grossly no focal neurological deficits Skin: normal color, warm Results & Data Results & Data Vital Signs (Past 12 Hours) Vital Signs Temp Pulse Resp BP Pulse Ox O2 Del Method 07/11/24 14:06 36.5 C 62 16 137/64 96 Room Air 07/11/24 07:15 36.4 C L 58 L 16 131/53 L 95 Room Air (2) UTI (urinary tract infection) Hematuria presence: without hematuria Urinary tract infection type: acute cystitis Qualified Code(s): N30.00 - Acute cystitis without hematuria
--- NOTE | 2024-07-12 16:19 | Hospitalist Progress Note ---
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 He is being managed for the following: Metabolic encephalopathy Generalized Weakness Acute UTI --CXR and respiratory panel negative at presentation. -- Urine culture grew E. coli --CT head:No acute intracranial findings. --1 out of 4 blood culture positive for Staph epidermidis; contaminant. 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 DVT Px: SQ heparin CODE STATUS DNR/DNI Disposition: SNF when accepted Case management to help with discharge planning Admission and Anticipated Discharge Date Admission Date: June 28, 2024 Subjective Patient is seen and examined at bedside Poor historian secondary to dementia Sitting in chair during my encounter Waiting for rehab placement No distress on exam Review of Systems Review of Systems: Other Physical Exam Physical Exam: Physical Exam: Vitals signs as noted above General Appearance:Moderately built and nourished, no apparent distress Head: normocephalic, Atraumatic Eyes: normal inspection, EOMI Neck: supple, Trachea midline Respiratory/Chest: Normal breath sounds, CTA, No accessory muscle use Cardiovascular: S1, S2, + murmur Abdomen/GI:Soft, Non tender, Bowel sounds present Extremities/Musculoskeletal:normal inspection, no edema Neurologic/Psych:AAOX1, grossly no focal neurological deficits Skin: normal color, warm Results & Data Results & Data Vital Signs (Past 12 Hours) Vital Signs Temp Pulse Resp BP Pulse Ox O2 Del Method 07/12/24 07:15 36.6 C 55 L 18 137/69 97 Room Air (2) UTI (urinary tract infection) Hematuria presence: without hematuria Urinary tract infection type: acute cystitis Qualified Code(s): N30.00 - Acute cystitis without hematuria
--- NOTE | 2024-07-13 16:45 | Hospitalist Progress Note ---
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 He is being managed for the following: Metabolic encephalopathy Generalized Weakness Acute UTI --CXR and respiratory panel negative at presentation. -- Urine culture grew E. coli --CT head:No acute intracranial findings. --1 out of 4 blood culture positive for Staph epidermidis; contaminant. 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 DVT Px: SQ heparin CODE STATUS DNR/DNI Disposition: SNF when accepted Case management to help with discharge planning Admission and Anticipated Discharge Date Admission Date: June 28, 2024 Subjective Patient is seen and examined at bedside Poor historian secondary to dementia Pleasantly confused Offers no new complaints today Waiting for rehab placement Review of Systems Review of Systems: All systems reviewed & are unremarkable except as noted in Subjective Physical Exam Physical Exam: Physical Exam: Vitals signs as noted above General Appearance:Moderately built and nourished, no apparent distress Head: normocephalic, Atraumatic Eyes: normal inspection, EOMI Neck: supple, Trachea midline Respiratory/Chest: Normal breath sounds, CTA, No accessory muscle use Cardiovascular: S1, S2, + murmur Abdomen/GI:Soft, Non tender, Bowel sounds present Extremities/Musculoskeletal:normal inspection, no edema Neurologic/Psych:AAOX1, grossly no focal neurological deficits Skin: normal color, warm Results & Data Results & Data Vital Signs (Past 12 Hours) Vital Signs Temp Pulse Resp BP Pulse Ox O2 Del Method 07/13/24 15:21 36.7 C 52 L 18 111/68 99 Room Air 07/13/24 07:16 36.4 C L 63 16 102/53 L 97 Room Air (2) UTI (urinary tract infection) Hematuria presence: without hematuria Urinary tract infection type: acute cystitis Qualified Code(s): N30.00 - Acute cystitis without hematuria
[2024-07-14 09:50] LABS: Hematocrit (blood only) 45.3 % (42.0-52.0); Hemoglobin 15.5 g/dl (14.0-18.0); Mean Corpuscular Hgb Conc 34.2 g/dL (32.0-36.0); Mean Corpuscular Volume 96.6 fL (80.0-100.0); Mean Platelet Volume 8.6 fL (9.4-12.4); Platelet Count 272 K/uL (130-400); RDW Coefficient of Variation 12.2 % (11.5-14.5); RDW Standard Deviation 42.9 fL (36.4-46.3); Red Blood Count 4.69 M/uL (4.70-6.10); White Blood Count 4.36 K/ul (4.8-10.8)
[2024-07-14 10:05] LABS: BUN Creatinine Ratio 19.8 (10-20); Calcium 9.5 mg/dl (8.6-10.3); Creatinine Clr Calc Pharmacy 46.8 ml/min; Potassium 4.2 mmol/L (3.5-5.1)
--- NOTE | 2024-07-14 18:00 | Hospitalist Progress Note ---
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 He is being managed for the following: Metabolic encephalopathy Generalized Weakness Acute UTI --CXR and respiratory panel negative at presentation. -- Urine culture grew E. coli --CT head:No acute intracranial findings. --1 out of 4 blood culture positive for Staph epidermidis; contaminant. 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 DVT Px: SQ heparin CODE STATUS DNR/DNI Disposition: SNF when accepted Case management to help with discharge planning Admission and Anticipated Discharge Date Admission Date: June 28, 2024 Subjective Patient is seen in follow up Sitting up in chair, in NAD, eating ice cream Poor historian secondary to dementia Pleasantly confused Offers no new complaints today Denies any chest pain, or abd. pain. overall looks comfortable Waiting for rehab placement, CM involved Review of Systems Review of Systems: All systems reviewed & are unremarkable except as noted in Subjective Physical Exam Physical Exam: General Appearance:Moderately built and nourished, no apparent distress Head: normocephalic, Atraumatic Eyes: normal inspection, EOMI Neck: supple Respiratory/Chest: Normal breath sounds, CTA, No accessory muscle use Cardiovascular: S1, S2, + murmur Abdomen/GI:Soft, Non tender, Bowel sounds present Extremities/Musculoskeletal:normal inspection, no edema Neurologic/Psych:AAOX1, grossly no focal neurological deficits Skin: normal color, warm Results & Data Results & Data Vital Signs (Past 12 Hours) Vital Signs Temp Pulse Resp BP Pulse Ox O2 Del Method 07/14/24 16:16 36.9 C 71 18 119/77 97 Room Air 07/14/24 07:27 36.7 C 70 19 130/72 97 Room Air Laboratory Results 07/14/24 Range/Units 09:24 WBC 4.36 L (4.8-10.8) K/ul RBC 4.69 L (4.70-6.10) M/uL Hgb 15.5 (14.0-18.0) g/dl Hct 45.3 (42.0-52.0) % MCV 96.6 (80.0-100.0) fL MCH 33.0 (25.0-34.0) pg MCHC 34.2 (32.0-36.0) g/dL RDW Std Deviation 42.9 (36.4-46.3) fL RDW Coeff of Sarai 12.2 (11.5-14.5) % Plt Count 272 (130-400) K/uL MPV 8.6 L (9.4-12.4) fL Sodium 138 (136-145) mmol/L Potassium 4.2 (3.5-5.1) mmol/L Chloride 102 (98-107) mmol/L Carbon Dioxide 29 (21-32) mmol/L Anion Gap 7 (3-11) BUN 21 (6-23) mg/dl Creatinine 1.06 (0.6-1.4) mg/dl Est Cr Clr Drug Dosing 46.8 ml/min eGFR 69.20 BUN/Creatinine Ratio 19.8 (10-20) Glucose 165 H (70-99(Fasting)) mg/dl Calcium 9.5 (8.6-10.3) mg/dl Medications Administered Current Inpatient Medications Acetaminophen (Acetaminophen 325 Mg Tab) 650 mg PO Q4H PRN PRN Reason: Pain or Fever Stop: 07/28/24 17:18 Last Admin: 07/12/24 09:07 Dose: 650 mg Aspirin (Aspirin 81 Mg Ectab) 81 mg PO DAILY YANY Stop: 07/29/24 08:59 Last Admin: 07/14/24 08:47 Dose: 81 mg Bisacodyl (Bisacodyl 10 Mg Supp) 10 mg IN DAILY PRN PRN Reason: Constipation Stop: 08/08/24 08:46 Last Admin: 07/09/24 09:14 Dose: 10 mg Dextrose (Dextrose 50% 50 Ml Syringe) 25 - 50 ml IV UD PRN; Protocol PRN Reason: Hypoglycemia Protocol Stop: 07/28/24 17:18 Famotidine (Famotidine 20 Mg Tab) 20 mg PO DAILY PRN PRN Reason: Heartburn Stop: 07/28/24 17:18 Glucagon (Glucagon For Inj 1 Mg Vial) 1 mg SQ UD PRN; Protocol PRN Reason: Hypoglycemia Protocol Stop: 07/28/24 17:18 Glucose (Glucose 40% Gel 15 Gm Tube) 15 - 30 gm PO UD PRN; Protocol PRN Reason: Hypoglycemia Protocol Stop: 07/28/24 17:18 Glucose (Glucose 10 Tab/Tube) 4 - 8 tab PO UD PRN; Protocol PRN Reason: Hypoglycemia Protocol Stop: 07/28/24 17:18 Haloperidol Lactate (Haloperidol Lactate 5 Mg/Ml 1 Ml Vial) 2 mg IM Q2H PRN PRN Reason: Agitation Stop: 07/29/24 22:21 Last Admin: 07/06/24 04:58 Dose: 2 mg Heparin Sodium (Porcine) (Heparin Sod 5,000 Unit/0.5 Ml Vial) 5,000 units SQ Q12 YANY Stop: 07/28/24 20:59 Last Admin: 07/14/24 09:29 Dose: Not Given Lactobacillus Acidophilus (Advanced Probiotic 625 Mg Capsule) 1,250 mg PO DAILY YANY Stop: 07/29/24 08:59 Last Admin: 07/14/24 08:47 Dose: 1,250 mg Lisinopril (Lisinopril 5 Mg Tab) 5 mg PO DAILY YANY Stop: 08/09/24 08:59 Last Admin: 07/13/24 09:28 Dose: Not Given Melatonin (Melatonin 3 Mg Tab) 6 mg PO HS PRN PRN Reason: Sleep Stop: 07/28/24 20:59 Last Admin: 07/13/24 20:55 Dose: 6 mg Memantine (Memantine Hcl 10 Mg Tab) 10 mg PO BID YANY Stop: 07/28/24 20:59 Last Admin: 07/14/24 08:47 Dose: 10 mg Miscellaneous (Carbohydrates For Hypoglycemia ) 15 - 30 gm PO UD PRN PRN Reason: Hypoglycemia Protocol Stop: 07/28/24 17:18 Polyethylene Glycol (Polyethylene (Miralax) 17 Gm Pack) 17 gm PO BID PRN PRN Reason: Constipation Stop: 07/28/24 17:18 Pravastatin Sodium (Pravastatin Sod 40 Mg Tab) 40 mg PO HS [facility] Stop: 07/28/24 20:59 Last Admin: 07/13/24 20:55 Dose: 40 mg Senna/Docusate Sodium (Docusate Sodium/Senna 50/8.6mg Tab) 1 tab PO QAM [facility] Stop: 08/07/24 15:59 Last Admin: 07/14/24 08:47 Dose: 1 tab (2) UTI (urinary tract infection) Hematuria presence: without hematuria Urinary tract infection type: acute cystitis Qualified Code(s): N30.00 - Acute cystitis without hematuria
--- NOTE | 2024-07-15 17:25 | Hospitalist Progress Note ---
Date of Service July 15, 2024 Assessment & Plan (1) Generalized weakness: (2) UTI (urinary tract infection): (3) 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: (4) T2DM (type 2 diabetes mellitus): (5) HTN (hypertension): (6) CKD (chronic kidney disease) stage 3, GFR 30-59 ml/min: Plan 84-year-old male who has significant past medical history of HTN, HLD, T2DM, CKD stage III, GERD, BPH, late onset Alzheimer dementia without behavior disturbance who presents to ED secondary to worsening confusion. He is being managed for the following: Metabolic encephalopathy Generalized Weakness Acute UTI --CXR and respiratory panel negative at presentation. -- Urine culture grew E. coli --CT head:No acute intracranial findings. --1 out of 4 blood culture positive for Staph epidermidis; contaminant. 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 DVT Px: SQ heparin CODE STATUS DNR/DNI Disposition: SNF when accepted Case management to help with discharge planning Admission and Anticipated Discharge Date Admission Date: June 28, 2024 Subjective Patient is seen in follow up Currently laying in bed in [facility] Poor historian secondary to dementia Pleasantly confused Offers no new complaints today Denies any chest pain, or abd. pain. overall looks comfortable Waiting for rehab placement, CM involved Review of Systems Review of Systems: All systems reviewed & are unremarkable except as noted in Subjective Physical Exam Physical Exam: General Appearance:Moderately built and nourished, no apparent distress Head: normocephalic, Atraumatic Eyes: normal inspection, EOMI Neck: supple Respiratory/Chest: Normal breath sounds, CTA, No accessory muscle use Cardiovascular: S1, S2, + murmur Abdomen/GI:Soft, Non tender, Bowel sounds present Extremities/Musculoskeletal:normal inspection, no edema Neurologic/Psych:AAOX1, grossly no focal neurological deficits Skin: normal color, warm Results & Data Results & Data Vital Signs (Past 12 Hours) Vital Signs Temp Pulse Resp BP Pulse Ox O2 Del Method 07/15/24 14:29 36.4 C L 75 16 95/62 L 96 Room Air 07/15/24 08:10 36.4 C L 63 16 126/61 96 Room Air Medications Administered Current Inpatient Medications Acetaminophen (Acetaminophen 325 Mg Tab) 650 mg PO Q4H PRN PRN Reason: Pain or Fever Stop: 07/28/24 17:18 Last Admin: 07/12/24 09:07 Dose: 650 mg Aspirin (Aspirin 81 Mg Ectab) 81 mg PO DAILY YANY Stop: 07/29/24 08:59 Last Admin: 07/15/24 09:10 Dose: 81 mg Bisacodyl (Bisacodyl 10 Mg Supp) 10 mg [place] DAILY PRN PRN Reason: Constipation Stop: 08/08/24 08:46 Last Admin: 07/15/24 15:29 Dose: 10 mg Dextrose (Dextrose 50% 50 Ml Syringe) 25 - 50 ml IV UD PRN; Protocol PRN Reason: Hypoglycemia Protocol Stop: 07/28/24 17:18 Famotidine (Famotidine 20 Mg Tab) 20 mg PO DAILY PRN PRN Reason: Heartburn Stop: 07/28/24 17:18 Glucagon (Glucagon For Inj 1 Mg Vial) 1 mg SQ UD PRN; Protocol PRN Reason: Hypoglycemia Protocol Stop: 07/28/24 17:18 Glucose (Glucose 40% Gel 15 Gm Tube) 15 - 30 gm PO UD PRN; Protocol PRN Reason: Hypoglycemia Protocol Stop: 07/28/24 17:18 Glucose (Glucose 10 Tab/Tube) 4 - 8 tab PO UD PRN; Protocol PRN Reason: Hypoglycemia Protocol Stop: 07/28/24 17:18 Haloperidol Lactate (Haloperidol Lactate 5 Mg/Ml 1 Ml Vial) 2 mg IM Q2H PRN PRN Reason: Agitation Stop: 07/29/24 22:21 Last Admin: 07/06/24 04:58 Dose: 2 mg Heparin Sodium (Porcine) (Heparin Sod 5,000 Unit/0.5 Ml Vial) 5,000 units SQ Q12 YANY Stop: 07/28/24 20:59 Last Admin: 07/15/24 09:09 Dose: 5,000 units Lactobacillus Acidophilus (Advanced Probiotic 625 Mg Capsule) 1,250 mg PO DAILY YANY Stop: 07/29/24 08:59 Last Admin: 07/15/24 09:10 Dose: 1,250 mg Lisinopril (Lisinopril 5 Mg Tab) 5 mg PO DAILY YANY Stop: 08/09/24 08:59 Last Admin: 07/13/24 09:28 Dose: Not Given Melatonin (Melatonin 3 Mg Tab) 6 mg PO HS PRN PRN Reason: Sleep Stop: 07/28/24 20:59 Last Admin: 07/14/24 20:54 Dose: 6 mg Memantine (Memantine Hcl 10 Mg Tab) 10 mg PO BID YANY Stop: 07/28/24 20:59 Last Admin: 07/15/24 09:09 Dose: 10 mg Miscellaneous (Carbohydrates For Hypoglycemia ) 15 - 30 gm PO UD PRN PRN Reason: Hypoglycemia Protocol Stop: 07/28/24 17:18 Polyethylene Glycol (Polyethylene (Miralax) 17 Gm Pack) 17 gm PO BID PRN PRN Reason: Constipation Stop: 07/28/24 17:18 Pravastatin Sodium (Pravastatin Sod 40 Mg Tab) 40 mg PO HS YANY Stop: 07/28/24 20:59 Last Admin: 07/14/24 20:54 Dose: 40 mg Senna/Docusate Sodium (Docusate Sodium/Senna 50/8.6mg Tab) 1 tab PO QAM YANY Stop: 08/07/24 15:59 Last Admin: 07/15/24 09:09 Dose: 1 tab (2) UTI (urinary tract infection) Hematuria presence: without hematuria Urinary tract infection type: acute cystitis Qualified Code(s): N30.00 - Acute cystitis without hematuria
[2024-07-16] MEDS: POLYETHYLENE (MIRALAX) 17 GM PACK PO PRN (11:04)
--- NOTE | 2024-07-16 12:44 | Hospitalist Progress Note ---
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 He is being managed for the following: Metabolic encephalopathy Generalized Weakness Acute UTI --CXR and respiratory panel negative at presentation. --Urine culture grew E. coli --CT head: No acute intracranial findings. --1 out of 4 blood culture positive for Staph epidermidis; contaminant. 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 DVT Px: SQ heparin CODE STATUS DNR/DNI Disposition: SNF when accepted Case management to help with discharge planning Admission and Anticipated Discharge Date Admission Date: June 28, 2024 Subjective Patient is seen in follow up Currently laying in bed in [facility] Poor historian secondary to dementia Pleasantly confused Offers no new complaints today Denies any chest pain, or abd. pain. overall looks comfortable Waiting for rehab placement, CM involved Discussed w/ RN + constipation - will increase bowel regimen - give miralax, in addition to senna, and suppository Review of Systems Review of Systems: All systems reviewed & are unremarkable except as noted in Subjective Physical Exam Physical Exam: General Appearance: Moderately built and nourished, no apparent distress Head: normocephalic, Atraumatic Eyes: normal inspection, EOMI Neck: supple Respiratory/Chest: Normal breath sounds, CTA, No accessory muscle use Cardiovascular: S1, S2, + murmur Abdomen/GI:Soft, Non tender, Bowel sounds present Extremities/Musculoskeletal:normal inspection, no edema Neurologic/Psych:AAOX1, grossly no focal neurological deficits Skin: normal color, warm Results & Data Results & Data Vital Signs (Past 12 Hours) Vital Signs Temp Pulse Resp BP Pulse Ox O2 Del Method 07/16/24 07:09 36.8 C 72 17 149/72 H 96 Room Air Medications Administered Current Inpatient Medications Acetaminophen (Acetaminophen 325 Mg Tab) 650 mg PO Q4H PRN PRN Reason: Pain or Fever Stop: 07/28/24 17:18 Last Admin: 07/12/24 09:07 Dose: 650 mg Aspirin (Aspirin 81 Mg Ectab) 81 mg PO DAILY YANY Stop: 07/29/24 08:59 Last Admin: 07/16/24 07:54 Dose: 81 mg Bisacodyl (Bisacodyl 10 Mg Supp) 10 mg [place] DAILY PRN PRN Reason: Constipation Stop: 08/08/24 08:46 Last Admin: 07/16/24 11:04 Dose: 10 mg Dextrose (Dextrose 50% 50 Ml Syringe) 25 - 50 ml IV UD PRN; Protocol PRN Reason: Hypoglycemia Protocol Stop: 07/28/24 17:18 Famotidine (Famotidine 20 Mg Tab) 20 mg PO DAILY PRN PRN Reason: Heartburn Stop: 07/28/24 17:18 Glucagon (Glucagon For Inj 1 Mg Vial) 1 mg SQ UD PRN; Protocol PRN Reason: Hypoglycemia Protocol Stop: 07/28/24 17:18 Glucose (Glucose 40% Gel 15 Gm Tube) 15 - 30 gm PO UD PRN; Protocol PRN Reason: Hypoglycemia Protocol Stop: 07/28/24 17:18 Glucose (Glucose 10 Tab/Tube) 4 - 8 tab PO UD PRN; Protocol PRN Reason: Hypoglycemia Protocol Stop: 07/28/24 17:18 Haloperidol Lactate (Haloperidol Lactate 5 Mg/Ml 1 Ml Vial) 2 mg IM Q2H PRN PRN Reason: Agitation Stop: 07/29/24 22:21 Last Admin: 07/06/24 04:58 Dose: 2 mg Heparin Sodium (Porcine) (Heparin Sod 5,000 Unit/0.5 Ml Vial) 5,000 units SQ Q12 YANY Stop: 07/28/24 20:59 Last Admin: 07/16/24 08:03 Dose: 5,000 units Lactobacillus Acidophilus (Advanced Probiotic 625 Mg Capsule) 1,250 mg PO DAILY YANY Stop: 07/29/24 08:59 Last Admin: 07/16/24 07:54 Dose: 1,250 mg Lisinopril (Lisinopril 5 Mg Tab) 5 mg PO DAILY YANY Stop: 08/09/24 08:59 Last Admin: 07/13/24 09:28 Dose: Not Given Melatonin (Melatonin 3 Mg Tab) 6 mg PO HS PRN PRN Reason: Sleep Stop: 07/28/24 20:59 Last Admin: 07/14/24 20:54 Dose: 6 mg Memantine (Memantine Hcl 10 Mg Tab) 10 mg PO BID YANY Stop: 07/28/24 20:59 Last Admin: 07/16/24 07:55 Dose: 10 mg Miscellaneous (Carbohydrates For Hypoglycemia ) 15 - 30 gm PO UD PRN PRN Reason: Hypoglycemia Protocol Stop: 07/28/24 17:18 Polyethylene Glycol (Polyethylene (Miralax) 17 Gm Pack) 17 gm PO BID YANY Stop: 08/15/24 20:59 Pravastatin Sodium (Pravastatin Sod 40 Mg Tab) 40 mg PO HS YANY Stop: 07/28/24 20:59 Last Admin: 07/15/24 20:13 Dose: 40 mg Senna/Docusate Sodium (Docusate Sodium/Senna 50/8.6mg Tab) 1 tab PO QAM YANY Stop: 08/07/24 15:59 Last Admin: 07/16/24 07:54 Dose: 1 tab (2) UTI (urinary tract infection) Hematuria presence: without hematuria Urinary tract infection type: acute cystitis Qualified Code(s): N30.00 - Acute cystitis without hematuria
[2024-07-16] MEDS: POLYETHYLENE (MIRALAX) 17 GM PACK PO SCH (20:41)
--- NOTE | 2024-07-17 14:40 | Hospitalist Progress Note ---
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 He is being managed for the following: Metabolic encephalopathy Generalized Weakness Acute UTI --CXR and respiratory panel negative at presentation. --Urine culture grew E. coli --CT head: No acute intracranial findings. --1 out of 4 blood culture positive for Staph epidermidis; contaminant. 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 DVT Px: SQ heparin CODE STATUS DNR/DNI Disposition: SNF when accepted Case management to help with discharge planning Admission and Anticipated Discharge Date Admission Date: June 28, 2024 Subjective Patient is seen in follow up Currently laying in bed in [facility] Poor historian secondary to dementia Pleasantly confused Offers no new complaints today Denies any chest pain, or abd. pain. overall looks comfortable Waiting for rehab placement, CM involved Discussed w/ RN - constipation resolved Review of Systems Review of Systems: All systems reviewed & are unremarkable except as noted in Subjective Physical Exam Physical Exam: General Appearance: Moderately built and nourished, no apparent distress Head: normocephalic, Atraumatic Eyes: normal inspection, EOMI Neck: supple Respiratory/Chest: Normal breath sounds, CTA, No accessory muscle use Cardiovascular: S1, S2, + murmur Abdomen/GI:Soft, Non tender, Bowel sounds present Extremities/Musculoskeletal:normal inspection, no edema Neurologic/Psych:AAOX1, grossly no focal neurological deficits Skin: normal color, warm Results & Data Results & Data Vital Signs (Past 12 Hours) Vital Signs Temp Pulse Resp BP Pulse Ox O2 Del Method 07/17/24 14:34 36.8 C 76 18 181/49 H 96 Room Air 07/17/24 07:11 36.6 C 67 18 156/66 H 96 Room Air Medications Administered Current Inpatient Medications Acetaminophen (Acetaminophen 325 Mg Tab) 650 mg PO Q4H PRN PRN Reason: Pain or Fever Stop: 07/28/24 17:18 Last Admin: 07/12/24 09:07 Dose: 650 mg Aspirin (Aspirin 81 Mg Ectab) 81 mg PO DAILY YANY Stop: 07/29/24 08:59 Last Admin: 07/17/24 08:25 Dose: 81 mg Bisacodyl (Bisacodyl 10 Mg Supp) 10 mg [place] DAILY PRN PRN Reason: Constipation Stop: 08/08/24 08:46 Last Admin: 07/16/24 11:04 Dose: 10 mg Dextrose (Dextrose 50% 50 Ml Syringe) 25 - 50 ml IV UD PRN; Protocol PRN Reason: Hypoglycemia Protocol Stop: 07/28/24 17:18 Famotidine (Famotidine 20 Mg Tab) 20 mg PO DAILY PRN PRN Reason: Heartburn Stop: 07/28/24 17:18 Glucagon (Glucagon For Inj 1 Mg Vial) 1 mg SQ UD PRN; Protocol PRN Reason: Hypoglycemia Protocol Stop: 07/28/24 17:18 Glucose (Glucose 40% Gel 15 Gm Tube) 15 - 30 gm PO UD PRN; Protocol PRN Reason: Hypoglycemia Protocol Stop: 07/28/24 17:18 Glucose (Glucose 10 Tab/Tube) 4 - 8 tab PO UD PRN; Protocol PRN Reason: Hypoglycemia Protocol Stop: 07/28/24 17:18 Haloperidol Lactate (Haloperidol Lactate 5 Mg/Ml 1 Ml Vial) 2 mg IM Q2H PRN PRN Reason: Agitation Stop: 07/29/24 22:21 Last Admin: 07/06/24 04:58 Dose: 2 mg Heparin Sodium (Porcine) (Heparin Sod 5,000 Unit/0.5 Ml Vial) 5,000 units SQ Q12 YANY Stop: 07/28/24 20:59 Last Admin: 07/17/24 08:24 Dose: 5,000 units Lactobacillus Acidophilus (Advanced Probiotic 625 Mg Capsule) 1,250 mg PO DAILY YANY Stop: 07/29/24 08:59 Last Admin: 07/17/24 08:25 Dose: 1,250 mg Lisinopril (Lisinopril 5 Mg Tab) 5 mg PO DAILY YANY Stop: 08/09/24 08:59 Last Admin: 07/13/24 09:28 Dose: Not Given Melatonin (Melatonin 3 Mg Tab) 6 mg PO HS PRN PRN Reason: Sleep Stop: 07/28/24 20:59 Last Admin: 07/16/24 20:50 Dose: 6 mg Memantine (Memantine Hcl 10 Mg Tab) 10 mg PO BID YANY Stop: 07/28/24 20:59 Last Admin: 07/17/24 08:25 Dose: 10 mg Miscellaneous (Carbohydrates For Hypoglycemia ) 15 - 30 gm PO UD PRN PRN Reason: Hypoglycemia Protocol Stop: 07/28/24 17:18 Polyethylene Glycol (Polyethylene (Miralax) 17 Gm Pack) 17 gm PO BID YANY Stop: 08/15/24 20:59 Last Admin: 07/17/24 08:24 Dose: 17 gm Pravastatin Sodium (Pravastatin Sod 40 Mg Tab) 40 mg PO HS YANY Stop: 07/28/24 20:59 Last Admin: 07/16/24 20:42 Dose: 40 mg Senna/Docusate Sodium (Docusate Sodium/Senna 50/8.6mg Tab) 1 tab PO QAM YANY Stop: 08/07/24 15:59 Last Admin: 07/17/24 08:24 Dose: 1 tab (2) UTI (urinary tract infection) Hematuria presence: without hematuria Urinary tract infection type: acute cystitis Qualified Code(s): N30.00 - Acute cystitis without hematuria
--- NOTE | 2024-07-18 15:49 | Hospitalist Progress Note ---
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 He is being managed for the following: Metabolic encephalopathy Generalized Weakness Acute UTI --CXR and respiratory panel negative at presentation. --Urine culture grew E. coli --CT head: No acute intracranial findings. --1 out of 4 blood culture positive for Staph epidermidis; contaminant. 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 DVT Px: SQ heparin CODE STATUS DNR/DNI Disposition: SNF when accepted Case management to help with discharge planning Admission and Anticipated Discharge Date Admission Date: June 28, 2024 Subjective Patient is seen in follow up Currently laying in bed in [facility] Poor historian secondary to dementia Pleasantly confused Offers no new complaints today Denies any chest pain, or abd. pain. overall looks comfortable Waiting for rehab placement, CM involved Pt's present at the bedside and updated Review of Systems Review of Systems: All systems reviewed & are unremarkable except as noted in Subjective Physical Exam Physical Exam: General Appearance: Moderately built and nourished, no apparent distress Head: normocephalic, Atraumatic Eyes: normal inspection, EOMI Neck: supple Respiratory/Chest: Normal breath sounds, CTA, No accessory muscle use Cardiovascular: S1, S2, + murmur Abdomen/GI:Soft, Non tender, Bowel sounds present Extremities/Musculoskeletal:normal inspection, no edema Neurologic/Psych:AAOX1, grossly no focal neurological deficits Skin: normal color, warm Results & Data Results & Data Vital Signs (Past 12 Hours) Vital Signs Temp Pulse Resp BP Pulse Ox O2 Del Method 07/18/24 15:07 36.7 C 72 18 110/66 96 Room Air 07/18/24 07:09 36.6 C 63 18 115/68 96 Room Air Medications Administered Current Inpatient Medications Acetaminophen (Acetaminophen 325 Mg Tab) 650 mg PO Q4H PRN PRN Reason: Pain or Fever Stop: 07/28/24 17:18 Last Admin: 07/12/24 09:07 Dose: 650 mg Aspirin (Aspirin 81 Mg Ectab) 81 mg PO DAILY YANY Stop: 07/29/24 08:59 Last Admin: 07/18/24 09:34 Dose: 81 mg Bisacodyl (Bisacodyl 10 Mg Supp) 10 mg [place] DAILY PRN PRN Reason: Constipation Stop: 08/08/24 08:46 Last Admin: 07/16/24 11:04 Dose: 10 mg Dextrose (Dextrose 50% 50 Ml Syringe) 25 - 50 ml IV UD PRN; Protocol PRN Reason: Hypoglycemia Protocol Stop: 07/28/24 17:18 Famotidine (Famotidine 20 Mg Tab) 20 mg PO DAILY PRN PRN Reason: Heartburn Stop: 07/28/24 17:18 Glucagon (Glucagon For Inj 1 Mg Vial) 1 mg SQ UD PRN; Protocol PRN Reason: Hypoglycemia Protocol Stop: 07/28/24 17:18 Glucose (Glucose 40% Gel 15 Gm Tube) 15 - 30 gm PO UD PRN; Protocol PRN Reason: Hypoglycemia Protocol Stop: 07/28/24 17:18 Glucose (Glucose 10 Tab/Tube) 4 - 8 tab PO UD PRN; Protocol PRN Reason: Hypoglycemia Protocol Stop: 07/28/24 17:18 Haloperidol Lactate (Haloperidol Lactate 5 Mg/Ml 1 Ml Vial) 2 mg IM Q2H PRN PRN Reason: Agitation Stop: 07/29/24 22:21 Last Admin: 07/06/24 04:58 Dose: 2 mg Heparin Sodium (Porcine) (Heparin Sod 5,000 Unit/0.5 Ml Vial) 5,000 units SQ Q12 YANY Stop: 07/28/24 20:59 Last Admin: 07/18/24 10:10 Dose: 5,000 units Lactobacillus Acidophilus (Advanced Probiotic 625 Mg Capsule) 1,250 mg PO DAILY [facility] Stop: 07/29/24 08:59 Last Admin: 07/18/24 09:36 Dose: 1,250 mg Lisinopril (Lisinopril 5 Mg Tab) 5 mg PO DAILY YANY Stop: 08/09/24 08:59 Last Admin: 07/13/24 09:28 Dose: Not Given Melatonin (Melatonin 3 Mg Tab) 6 mg PO HS PRN PRN Reason: Sleep Stop: 07/28/24 20:59 Last Admin: 07/16/24 20:50 Dose: 6 mg Memantine (Memantine Hcl 10 Mg Tab) 10 mg PO BID YANY Stop: 07/28/24 20:59 Last Admin: 07/18/24 09:34 Dose: 10 mg Miscellaneous (Carbohydrates For Hypoglycemia ) 15 - 30 gm PO UD PRN PRN Reason: Hypoglycemia Protocol Stop: 07/28/24 17:18 Polyethylene Glycol (Polyethylene (Miralax) 17 Gm Pack) 17 gm PO QAM PRN PRN Reason: Constipation Stop: 08/17/24 08:59 Pravastatin Sodium (Pravastatin Sod 40 Mg Tab) 40 mg PO HS YANY Stop: 07/28/24 20:59 Last Admin: 07/17/24 21:37 Dose: 40 mg Senna/Docusate Sodium (Docusate Sodium/Senna 50/8.6mg Tab) 1 tab PO QAM YANY Stop: 08/07/24 15:59 Last Admin: 07/18/24 10:10 Dose: 1 tab (2) UTI (urinary tract infection) Hematuria presence: without hematuria Urinary tract infection type: acute cystitis Qualified Code(s): N30.00 - Acute cystitis without hematuria
[2024-07-19] MEDS: POLYETHYLENE (MIRALAX) 17 GM PACK PO PRN (06:37)
--- NOTE | 2024-07-19 16:12 | Hospitalist Progress Note ---
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 He is being managed for the following: Metabolic encephalopathy Generalized Weakness Acute UTI --CXR and respiratory panel negative at presentation. --Urine culture grew E. coli --CT head: No acute intracranial findings. --1 out of 4 blood culture positive for Staph epidermidis; contaminant. 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 DVT Px: SQ heparin CODE STATUS DNR/DNI Disposition: SNF when accepted Case management to help with discharge planning Admission and Anticipated Discharge Date Admission Date: June 28, 2024 Subjective Patient is seen in follow up Currently laying in bed in [facility] Poor historian secondary to dementia Pleasantly confused Offers no new complaints today Denies any chest pain, or abd. pain. overall looks comfortable Waiting for rehab placement, CM involved Review of Systems Review of Systems: All systems reviewed & are unremarkable except as noted in Subjective Physical Exam Physical Exam: General Appearance: Moderately built and nourished, no apparent distress Head: normocephalic, Atraumatic Eyes: normal inspection, EOMI Neck: supple Respiratory/Chest: Normal breath sounds, CTA, No accessory muscle use Cardiovascular: S1, S2, + murmur Abdomen/GI:Soft, Non tender, Bowel sounds present Extremities/Musculoskeletal:normal inspection, no edema Neurologic/Psych:AAOX1, grossly no focal neurological deficits Skin: normal color, warm Results & Data Results & Data Vital Signs (Past 12 Hours) Vital Signs Temp Pulse Pulse Resp BP Pulse Ox O2 Del Method 07/19/24 14:17 36.5 C 59 L 16 113/59 L 98 Room Air 07/19/24 11:44 36.8 C 60 12 150/64 H 96 Room Air 07/19/24 09:21 72 115/68 07/19/24 08:00 Room Air 07/19/24 07:45 36.6 C 68 14 140/80 98 Room Air Medications Administered Current Inpatient Medications Acetaminophen (Acetaminophen 325 Mg Tab) 650 mg PO Q4H PRN PRN Reason: Pain or Fever Stop: 07/28/24 17:18 Last Admin: 07/12/24 09:07 Dose: 650 mg Aspirin (Aspirin 81 Mg Ectab) 81 mg PO DAILY YANY Stop: 07/29/24 08:59 Last Admin: 07/19/24 08:35 Dose: 81 mg Bisacodyl (Bisacodyl 10 Mg Supp) 10 mg DE DAILY PRN PRN Reason: Constipation Stop: 08/08/24 08:46 Last Admin: 07/16/24 11:04 Dose: 10 mg Dextrose (Dextrose 50% 50 Ml Syringe) 25 - 50 ml IV UD PRN; Protocol PRN Reason: Hypoglycemia Protocol Stop: 07/28/24 17:18 Famotidine (Famotidine 20 Mg Tab) 20 mg PO DAILY PRN PRN Reason: Heartburn Stop: 07/28/24 17:18 Glucagon (Glucagon For Inj 1 Mg Vial) 1 mg SQ UD PRN; Protocol PRN Reason: Hypoglycemia Protocol Stop: 07/28/24 17:18 Glucose (Glucose 40% Gel 15 Gm Tube) 15 - 30 gm PO UD PRN; Protocol PRN Reason: Hypoglycemia Protocol Stop: 07/28/24 17:18 Glucose (Glucose 10 Tab/Tube) 4 - 8 tab PO UD PRN; Protocol PRN Reason: Hypoglycemia Protocol Stop: 07/28/24 17:18 Haloperidol Lactate (Haloperidol Lactate 5 Mg/Ml 1 Ml Vial) 2 mg IM Q2H PRN PRN Reason: Agitation Stop: 07/29/24 22:21 Last Admin: 07/06/24 04:58 Dose: 2 mg Heparin Sodium (Porcine) (Heparin Sod 5,000 Unit/0.5 Ml Vial) 5,000 units SQ Q12 YANY Stop: 07/28/24 20:59 Last Admin: 07/19/24 08:38 Dose: 5,000 units Lactobacillus Acidophilus (Advanced Probiotic 625 Mg Capsule) 1,250 mg PO DAILY YANY Stop: 07/29/24 08:59 Last Admin: 07/19/24 08:34 Dose: 1,250 mg Lisinopril (Lisinopril 5 Mg Tab) 5 mg PO DAILY YANY Stop: 08/09/24 08:59 Last Admin: 07/13/24 09:28 Dose: Not Given Melatonin (Melatonin 3 Mg Tab) 6 mg PO HS PRN PRN Reason: Sleep Stop: 07/28/24 20:59 Last Admin: 07/16/24 20:50 Dose: 6 mg Memantine (Memantine Hcl 10 Mg Tab) 10 mg PO BID YANY Stop: 07/28/24 20:59 Last Admin: 07/19/24 08:35 Dose: 10 mg Miscellaneous (Carbohydrates For Hypoglycemia ) 15 - 30 gm PO UD PRN PRN Reason: Hypoglycemia Protocol Stop: 07/28/24 17:18 Polyethylene Glycol (Polyethylene (Miralax) 17 Gm Pack) 17 gm PO QAM PRN PRN Reason: Constipation Stop: 08/17/24 08:59 Last Admin: 07/19/24 06:37 Dose: 17 gm Pravastatin Sodium (Pravastatin Sod 40 Mg Tab) 40 mg PO HS YANY Stop: 07/28/24 20:59 Last Admin: 07/18/24 20:40 Dose: 40 mg Senna/Docusate Sodium (Docusate Sodium/Senna 50/8.6mg Tab) 1 tab PO QAM YANY Stop: 08/07/24 15:59 Last Admin: 07/19/24 08:39 Dose: Not Given (2) UTI (urinary tract infection) Hematuria presence: without hematuria Urinary tract infection type: acute cystitis Qualified Code(s): N30.00 - Acute cystitis without hematuria
[2024-07-20] MEDS: FAMOTIDINE 20 MG TAB PO PRN (08:07)
--- NOTE | 2024-07-20 14:42 | Hospitalist Progress Note ---
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 He is being managed for the following: Metabolic encephalopathy Generalized Weakness Acute UTI --CXR and respiratory panel negative at presentation. --Urine culture grew E. coli --CT head: No acute intracranial findings. --1 out of 4 blood culture positive for Staph epidermidis; contaminant. 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 DVT Px: SQ heparin CODE STATUS DNR/DNI Disposition: SNF tomorrow Case management to help with discharge planning Admission and Anticipated Discharge Date Admission Date: June 28, 2024 Subjective Patient is seen in follow up Currently laying in bed in [facility] Poor historian secondary to dementia Pleasantly confused Offers no new complaints today Denies any chest pain, or abd. pain. overall looks comfortable Waiting for rehab placement, CM involved -- Plan to DC to SNF tmrw AM Review of Systems Review of Systems: All systems reviewed & are unremarkable except as noted in Subjective Physical Exam Physical Exam: General Appearance: Moderately built and nourished, no apparent distress Head: normocephalic, Atraumatic Eyes: normal inspection, EOMI Neck: supple Respiratory/Chest: Normal breath sounds, CTA, No accessory muscle use Cardiovascular: S1, S2, + murmur Abdomen/GI:Soft, Non tender, Bowel sounds present Extremities/Musculoskeletal:normal inspection, no edema Neurologic/Psych:AAOX1, grossly no focal neurological deficits Skin: normal color, warm Results & Data Results & Data Vital Signs (Past 12 Hours) Vital Signs Temp Pulse Resp BP Pulse Ox O2 Del Method 07/20/24 08:00 Room Air 07/20/24 07:56 36.5 C 69 18 148/70 H 98 Room Air Medications Administered Current Inpatient Medications Acetaminophen (Acetaminophen 325 Mg Tab) 650 mg PO Q4H PRN PRN Reason: Pain or Fever Stop: 07/28/24 17:18 Last Admin: 07/12/24 09:07 Dose: 650 mg Aspirin (Aspirin 81 Mg Ectab) 81 mg PO DAILY YANY Stop: 07/29/24 08:59 Last Admin: 07/20/24 08:02 Dose: 81 mg Bisacodyl (Bisacodyl 10 Mg Supp) 10 mg WI DAILY PRN PRN Reason: Constipation Stop: 08/08/24 08:46 Last Admin: 07/19/24 23:45 Dose: 10 mg Dextrose (Dextrose 50% 50 Ml Syringe) 25 - 50 ml IV UD PRN; Protocol PRN Reason: Hypoglycemia Protocol Stop: 07/28/24 17:18 Famotidine (Famotidine 20 Mg Tab) 20 mg PO DAILY PRN PRN Reason: Heartburn Stop: 07/28/24 17:18 Last Admin: 07/20/24 08:07 Dose: 20 mg Glucagon (Glucagon For Inj 1 Mg Vial) 1 mg SQ UD PRN; Protocol PRN Reason: Hypoglycemia Protocol Stop: 07/28/24 17:18 Glucose (Glucose 40% Gel 15 Gm Tube) 15 - 30 gm PO UD PRN; Protocol PRN Reason: Hypoglycemia Protocol Stop: 07/28/24 17:18 Glucose (Glucose 10 Tab/Tube) 4 - 8 tab PO UD PRN; Protocol PRN Reason: Hypoglycemia Protocol Stop: 07/28/24 17:18 Haloperidol Lactate (Haloperidol Lactate 5 Mg/Ml 1 Ml Vial) 2 mg IM Q2H PRN PRN Reason: Agitation Stop: 07/29/24 22:21 Last Admin: 07/06/24 04:58 Dose: 2 mg Heparin Sodium (Porcine) (Heparin Sod 5,000 Unit/0.5 Ml Vial) 5,000 units SQ Q12 YANY Stop: 07/28/24 20:59 Last Admin: 12/10/24 08:07 Dose: 5,000 units Lactobacillus Acidophilus (Advanced Probiotic 625 Mg Capsule) 1,250 mg PO DAILY YANY Stop: 07/29/24 08:59 Last Admin: 07/20/24 08:02 Dose: 1,250 mg Lisinopril (Lisinopril 5 Mg Tab) 5 mg PO DAILY YANY Stop: 08/09/24 08:59 Last Admin: 07/13/24 09:28 Dose: Not Given Melatonin (Melatonin 3 Mg Tab) 6 mg PO HS PRN PRN Reason: Sleep Stop: 07/28/24 20:59 Last Admin: 07/16/24 20:50 Dose: 6 mg Memantine (Memantine Hcl 10 Mg Tab) 10 mg PO BID YANY Stop: 07/28/24 20:59 Last Admin: 07/20/24 08:02 Dose: 10 mg Miscellaneous (Carbohydrates For Hypoglycemia ) 15 - 30 gm PO UD PRN PRN Reason: Hypoglycemia Protocol Stop: 07/28/24 17:18 Polyethylene Glycol (Polyethylene (Miralax) 17 Gm Pack) 17 gm PO QAM PRN PRN Reason: Constipation Stop: 08/17/24 08:59 Last Admin: 07/20/24 08:08 Dose: 17 gm Pravastatin Sodium (Pravastatin Sod 40 Mg Tab) 40 mg PO HS YANY Stop: 07/28/24 20:59 Last Admin: 07/19/24 21:43 Dose: 40 mg Senna/Docusate Sodium (Docusate Sodium/Senna 50/8.6mg Tab) 1 tab PO QAM YANY Stop: 08/07/24 15:59 Last Admin: 07/20/24 08:07 Dose: 1 tab (2) UTI (urinary tract infection) Hematuria presence: without hematuria Urinary tract infection type: acute cystitis Qualified Code(s): N30.00 - Acute cystitis without hematuria
[2024-07-21 09:07] VITALS: TEMP 97.5
--- NOTE | 2024-07-21 12:22 | Discharge Summary ---
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 --Urine culture grew E. coli --CT head: No acute intracranial findings. --1 out of 4 blood culture positive for Staph epidermidis; contaminant. --Renal ultrasound does not show hydronephrosis --Patient completed antibiotics for 7 days Continue delirium precautions, Frequent reorientation, avoid sedating medications as able One-to-one observation as needed Avoid sedative medications to minimize excessive sedation Continue home alyseikera Pt's discharge was complicated by need for placement- discharged to [facility] on 07/21/24 Constipation resolved Continue bowel regimen T2DM held Jardiance, resumed on discharge last a1c was 6.2 in November avery AC/HS HTN Blood pressure variable Home lisinopril 10mg decreased to 5mg daily before being discontinued on discharge due to lower blood pressures PCP followup for continued monitoring to ensure stability and resume lisinopril as needed HLD Continue statin CKD-3 baseline cr 1.1 Avoid nephrotoxic agents. Notes For Next Care Provider Please continue to monitor BP and resume lisinopril as able Medication Changes From Visit Lisinopril discontinued Admission HPI Per Admitting Provider This is an 84-year-old male who has significant past medical history of HTN, HLD, T2DM, CKD stage III, GERD, BPH, late onset Alzheimer dementia without behavior disturbance who presents to ED secondary to worsening confusion. History obtained from ED provider and outpatient chart review given patient's underlying cognitive status. Patient's is at bedside who also helps elicit history. Her live at home. He does not require assist device for ambulation but she states he typically takes very slow and short steps. She is his main caregiver. He does have underlying dementia. At baseline he tends to be confused and sometimes is unaware of who she is. She does not feel his confusion is any worse than his baseline. She feels he has been getting increasingly weak over the past few days. Typically he is able to get in bed himself but today he had had difficulty doing so. She denies any known fever, chest pain, shortness of breath, vomiting or diarrhea. She states he had been constipated and was previously seen in ED a few weeks prior because of this. He is mostly incontinent of urine and wears depends. In ED patient remained hemodynamically stable. He did have a mild elevated temp at 37.7. He did not meet sepsis criteria. A CBC and CMP was generally unremarkable, but he did have a urinalysis that was consistent with infection. He did receive empiric IV Rocephin in the ED. Admission Exam Per Admitting Provider Gen: Thin, elderly, M, NAD, A&O to self HEENT: Normocephalic, atraumatic, conjunctivae moist, sclerae anicteric, mucous membranes moist dry with poor dentition Lung: Clear to Auscultation bilaterally, diminished at bases due to poor insp effort, no wheezes/rales/rhonchi Heart: Regular rate, regular rhythm,2/6 EMILIANO LUSB, no rubs, or gallops Abdomen: Soft, NT, ND +BS x 4 Extremities: No edema Skin: Warm, no rash, negative turgor. Discharge Exam General: Alert. No acute distress Neuro: alert HEENT: NC/AT CV: RRR Resp: Breath sounds clear bilaterally, no increased effort of breathing Abdomen:Soft, nontender, nondistended Extremities: No edema in lower extremities bilaterally. Updated Medication List Medication Instructions Recorded Confirmed Type aspirin 81 mg tablet,delayed 81 mg PO DAILY 06/28/24 06/28/24 History release empagliflozin 25 mg tablet 25 mg PO DAILY 06/28/24 06/28/24 History lisinopril 10 mg tablet 10 mg PO DAILY 06/28/24 06/28/24 History memantine 10 mg tablet 10 mg PO BID 06/28/24 06/28/24 History pravastatin 40 mg tablet 40 mg PO HS 06/28/24 06/28/24 History Hospital Stay Data Consultations 06/28/24 14:44 ED Decision to Admit Stat Diagnostic Imagining Performed 06/28/24 13:01 CT head/brain wo con Stat 06/30/24 07:53 US Renal Bladder [US renal/blad retro comp] Routine Chest X-Ray 06/28/24 13:01 XR chest 1V portable HISTORY: 84 years-old Male Chest pain, nonspecific COMPARISON: None TECHNIQUE: AP view the chest FINDINGS: Cardiac silhouette is mildly enlarged. Atherosclerosis of the aorta. No pneumothorax, large pleural effusion or overt pulmonary edema. Probable mild subsegmental bibasilar atelectasis with possible trace pleural effusions. Severe right glenohumeral osteoarthritis. IMPRESSION: No acute process. ACT 112: Negative or not required by law. The above report was generated using voice recognition software. It may contain grammatical, syntax or spelling errors. Electronically signed by: Shahid Vicente M.D. 06/28/2024 1:[address] 06/28/24 13:01 CT OF THE HEAD WITHOUT CONTRAST CLINICAL HISTORY: Altered mental status COMPARISON STUDY: No previous studies for comparison. CT DOSE: 625.8 mGy.cm TECHNIQUE: Helical axial images of the head were obtained without IV contrast. Automated exposure control was utilized for the study. A dose lowering technique was utilized adhering to the principles of ALARA. FINDINGS: No acute intracranial hemorrhage, midline shift or mass effect is present. Dilatation of the lateral and third ventricles is due to atrophy. White matter hypodensity suggests small vessel disease. The basal cisterns are patent. No extra-axial collections are present. There are no findings to suggest acute dural sinus thrombosis or acute territorial infarct. No significant calvarial abnormalities are present. Visualized portions of the sinuses and mastoid air cells are clear. IMPRESSION: No acute intracranial findings. ACT 112: Negative or not required by law. Electronically signed by: Nathaniel Grajeda M.D. 06/28/2024 2:01 PM Renal Ultrasound 06/30/24 07:53 RENAL ULTRASOUND CLINICAL HISTORY: UTI, rule out obstruction COMPARISON STUDY: CT of the abdomen and pelvis February 21, 2020 TECHNIQUE: Sonography of the kidneys and the urinary bladder was performed. FINDINGS: The right kidney measures 10.5 cm in maximal dimension and the left measures 11.5 cm. There is no hydronephrosis. No renal calculus or mass is identified. Renal echogenicity, size and cortical thickness are normal. The ureteral jets were not visualized. Mild bladder wall thickening is noted. IMPRESSION: Unremarkable sonographic appearance of the kidneys. No hydronephrosis. ACT 112: Negative or not required by law. Electronically signed by: Nathaniel Grajeda M.D. 06/30/2024 11:38 AM KUB X-Ray 07/09/24 07:00 [facility] CLINICAL HISTORY: Constipation. COMPARISON STUDY: CT of the abdomen and pelvis February 21, 2024 and renal ultrasound June 30, 2024. FINDINGS: The bowel gas pattern is normal. There is a large amount stool within the colon and moderate amount of stool within the rectum. No urinary calculi are identified. IMPRESSION: 1. No evidence for a bowel obstruction. 2. Moderate amount of stool within the rectum and large amount of stool within the colon. ACT 112: Negative or not required by law. Electronically signed by: Nathaniel Grajeda M.D. 07/09/2024 8:59 AM Pending Results Patient Have Any Pending Studies at Discharge: No Discharge Instructions Given to Patient (Per Discharging Provider) Mr. Lang, You are being discharged to a [place] [facility] facility. Please take you medications as prescribed. We discontinued your home lisinopril as your blood pressure has been on the lower end. Your primary care provider can resume it as needed based on the further trend of your blood pressures. Please keep close follow up with your primary care provider after discharge. Please do not hesitate to come back to the emergency room if your symptoms worsen or return. It was a pleasure taking care of you while you were here. Total Time Total Time Spent Total Time Spent (In Minutes): 60
[2024-07-21 12:43] VITALS: BP 122/62; PULSE 62; RESP 14; O2SAT 96
== END 2024-07-21 13:59 | DRG 689 ==
LOC: ED 12:48 → SUATTDRO 15:15 → 2N 15:15 → 3E 07-03 11:07